=== PATIENT | male | born 1955 | race Caucasian/White ===

== ENCOUNTER 2021-04-23 21:04 | Observation (INO) | payer OTHER, MEDICAID, SELFPAY ==
[2021-04-23] VITALS (30 sets, daily range): BP systolic 117–178; BP diastolic 66–103; PULSE 84–160; RESP 7–27; TEMP 36.3; O2SAT 89–99
--- NOTE | 2021-04-23 21:07 | DI.RAD.S_ITS ---
PROCEDURE: XR CHEST 1V INDICATIONS: altered TECHNIQUE: One view of the chest was acquired. COMPARISON: [facility], CR, XR CHEST 1 VIEW, 01/26/2021, 14:25. FINDINGS: Surgical changes and devices: None. Lungs and pleura: Lungs are clear. No pleural effusions or pneumothorax. Mediastinum: Mediastinal contours appear normal. Heart size is normal. Bones and chest wall: No suspicious bony lesions. Overlying soft tissues appear unremarkable. Degenerative changes are seen in the spine. IMPRESSION: No acute cardiopulmonary abnormality. Dictated by: Zoltan Yepez M.D. on 04/23/2021 at 22:10 Approved by: Zoltan Yepez M.D. on 04/23/2021 at 22:10
--- NOTE | 2021-04-23 21:17 | ED.AMS ---
HPI - Altered Mental Status General Chief Complaint: Altered Mental Status Stated Complaint: Unresponsive Time Seen by Provider: 04/23/21 21:06 History of Present Illness HPI narrative: 65-year-old male smoker with history of diabetes on insulin presents by EMS for evaluation of altered mental status. He was found in his car covered in vomit at a local restaurant. Medics found him unresponsive and initial blood sugar was 400. He was given Narcan and then came around. He denies the use of drugs but through the paramedics he is known to be a drug user. He states he has not missed any doses of his insulin and is otherwise well and free of complaint. He denies any chest pain or shortness of breath. He denies any trauma or other injury. Related Data Home Medications Medication Instructions Recorded Confirmed atorvastatin 80 mg PO DAILY 04/24/21 04/24/21 Allergies Allergy/AdvReac Type Severity Reaction Status Date / Time No Known Drug Allergies Allergy Verified 04/23/21 21:19 Review of Systems Review of Systems Narrative: GENERAL: See HP HEENT: Denies sinus pain, ear pain, sore throat, difficulty swallowing, dizziness. RESPIRATORY: Denies dyspnea, cough, wheezing, hemoptysis, sputum. CARDIOVASCULAR: Denies chest pain, palpitations, orthopnea, edema, GASTROINTESTINAL: See HPI : Denies dysuria, frequency, incontinence, hematuria, urinary retention. MUSCULOSKELETAL: denies weakness, joint pain, or bony pain SKIN: Denies rash, skin lesions, or other NEUROLOGIC: Denies weakness, headache, numbness, change in speech, confusion, seizures, incoordination. PSYCHIATRIC: No concerning psychosocial issues. 12 point review of systems is negative except for those stated above Patient History Medical History (Updated 04/24/21 @ 04:13 by QUINTON Thomas) Amphetamine abuse History of stroke with current residual effects Insulin dependent type 1 diabetes mellitus Methamphetamine abuse Tobacco abuse Weakness of left side of body Weakness of muscle of left side of face due to and not concurrent with cerebrovascular accident (CVA) Surgical History (Updated 04/24/21 @ 04:10 by QUINTON Thomas) History of right-sided carotid endarterectomy Family History (Updated 04/24/21 @ 04:15 by QUINTON Thomas) Mother Diabetes mellitus Father Congestive heart failure Social History household members: none Smoking Status: Smoker, status unknown alcohol intake: never Exam Narrative Exam Narrative: GENERAL: [65] year old patient appears stated age. Diaphoretic and covered in vomit, awake and alert but sluggish HEAD: Atraumatic. Normocephalic. EYES: Pupils equal round and reactive. Extraocular motions intact. No scleral icterus. No injection or drainage. ENT: Nose without bleeding, purulent drainage. Throat without erythema, tonsillar hypertrophy or exudate. Airway patent. NECK: Trachea midline. Non tender CARDIOVASCULAR: Regular rate and rhythm without murmurs, gallops, or rubs. RESPIRATORY: Clear to auscultation. Breath sounds equal bilaterally. No wheezes, rales, or rhonchi. GASTROINTESTINAL: Abdomen soft, non-tender, nondistended. EXTREMITIES: No edema or joint tenderness. BACK: Nontender without deformity or crepitance. No flank tenderness. NEURO: Oriented to person and place, unaware of time. SKIN: No rash or erythema of visible areas Initial Vital Signs Initial Vital Signs: Vital Signs Temperature 97.4 F L 04/23/21 21:06 Pulse Rate 160 H 04/23/21 21:06 Respiratory Rate 11 L 04/23/21 21:06 Blood Pressure 178/103 H 04/23/21 21:06 Pulse Oximetry 93 04/23/21 21:06 Course Orders Ordered: ED Orders 04/23/21 21:06 EKG-12 Lead Stat 04/23/21 21:07 XR chest 1V Stat 04/23/21 21:23 Venous Blood Gas Stat 04/23/21 21:25 Complete Blood Count AUTO DIFF Stat D Dimer Stat Lactate (Lactic Acid) Stat Thyroid Stimulating Hormone Stat 04/23/21 21:30 COVID19 - ADMIT (HEAT AND FROST INSULATOR swab/PCR) Stat 04/23/21 21:45 Blood Culture Stat 04/23/21 22:10 Urinalysis and Microscopic Stat Urine Drug Screen, Rapid Stat 04/23/21 22:46 CT angio chest PE protocol Stat 04/23/21 22:57 CT abdomen pelvis w con Stat 04/24/21 00:37 Ketones (Beta-Hydroxybutyrate) Urgent 04/24/21 00:39 Hemoglobin A1C% w Est Avg Glu Urgent 04/24/21 00:44 Consult to Dietitian, Adult Routine Acetaminophen (Acetaminophen 325 Mg Tablet) 650 mg PO Q4HR PRN PRN Reason: Fever/Mild Pain (1-3) Dextrose (Dextrose 50 % In Water 25 Gm/50 Ml Syringe) 25 gm IV PRN PRN PRN Reason: Hypoglycemia Enoxaparin Sodium (Enoxaparin 40 Mg/0.4 Ml Syringe) 40 mg SUBCUT DAILY RODRIGUE Lactated Ringer's (Lactated Ringers) 1,000 mls @ 150 mls/hr IV CONT RODRIGUE Last Admin: 04/24/21 01:58 Dose: 150 mls/hr Documented by: ANITA Insulin Glargine (Insulin Glargine 100 Unit/Ml 3ml Pen) 10 unit SUBCUT 2100 RODRIGUE Insulin Human Lispro (Insulin Lispro 100 Unit/Ml 3ml Vial) 0 unit SUBCUT ACHS [facility]; Protocol Ketorolac Tromethamine (Ketorolac 30 Mg/Ml Vial) 30 mg IV Q6HR PRN PRN Reason: Pain, Severe (7-10) Stop: 04/29/21 00:53 Metoclopramide HCl (Metoclopramide 10 Mg/2 Ml Inj) 10 mg IV Q6HR PRN PRN Reason: Nausea And Vomiting Naloxone HCl (Naloxone 0.4 Mg/Ml Vial) 0.2 mg IV Q2MIN PRN PRN Reason: Opiate Reversal Ondansetron HCl (Ondansetron 4 Mg/2 Ml Inj) 4 mg IV Q4HR PRN PRN Reason: Nausea And Vomiting Sodium Chloride (Sodium Chloride 0.9% Flush) 10 ml IV PRN PRN PRN Reason: Flush Sodium Chloride (Sodium Chloride 0.9% Flush) 10 ml IV BID [facility] Discontinued Medications Diltiazem HCl (Diltiazem 5 Mg/Ml Sdv) 10 mg IV NOW ONE Stop: 04/23/21 21:47 Last Admin: 04/23/21 21:58 Dose: 10 mg Documented by: ABSONI Sodium Chloride (Normal Saline 0.9%) 1,000 mls @ 1,000 mls/hr IV BOLUS ONE Stop: 04/23/21 22:07 Last Infusion: 04/23/21 22:20 Dose: 0 mls/hr Documented by: Admin: 04/23/21 21:23 Dose: 1,000 mls/hr Documented by: KWOYSKI Sodium Chloride (Normal Saline 0.9%) 1,000 mls @ 1,000 mls/hr IV BOLUS ONE Stop: 04/23/21 23:22 Last Infusion: 04/23/21 23:30 Dose: 0 mls/hr Documented by: [email or web address] Admin: 04/23/21 22:20 Dose: 1,000 mls/hr Documented by: CTRJESSIE Insulin Glargine (Insulin Glargine 100 Unit/Ml 3ml Pen) 10 unit SUBCUT NOW ONE Stop: 04/24/21 00:56 Last Admin: 04/24/21 02:02 Dose: 10 unit Documented by: ANITA Cosigned by: JUAN DAVID Insulin Human Regular (Insulin Regular 100 Unit/Ml 3 Ml Vial) 10 unit SUBCUT NOW ONE Stop: 04/23/21 22:24 Last Admin: 04/23/21 22:45 Dose: 10 unit Documented by: CTRJESSIE Cosigned by: JOSE M Metoclopramide HCl (Metoclopramide 10 Mg/2 Ml Inj) 10 mg IV NOW ONE Stop: 04/23/21 22:58 Last Admin: 04/24/21 01:20 Dose: 10 mg Documented by: CTRJESSIE Ondansetron HCl (Ondansetron 4 Mg/2 Ml Inj) 4 mg IV NOW ONE Stop: 04/23/21 22:06 Last Admin: 04/23/21 22:07 Dose: 4 mg Documented by: CTREAKYLER Ondansetron HCl (Ondansetron 4 Mg/2 Ml Inj) 4 mg IV NOW ONE Stop: 04/23/21 22:57 Last Admin: 04/23/21 22:59 Dose: 4 mg Documented by: CTRJESSIE Vital Signs Vital signs: Vital Signs - 8 hr 04/23/21 21:55 04/23/21 21:58 04/23/21 22:00 Pulse Rate 135 H 137 H 132 H Respiratory Rate 11 L 27 H Blood Pressure 137/90 137/90 117/70 Pulse Oximetry 96 98 04/23/21 22:05 04/23/21 22:10 04/23/21 22:15 Pulse Rate 133 H 132 H 120 H Respiratory Rate 18 21 9 L Blood Pressure 130/88 160/85 H 156/86 H Pulse Oximetry 97 97 04/23/21 22:20 04/23/21 22:25 04/23/21 22:30 Pulse Rate 117 H 118 H 113 H Respiratory Rate 10 L 10 L 10 L Blood Pressure 144/76 H 147/77 H Pulse Oximetry 97 97 04/23/21 22:31 04/23/21 22:35 04/23/21 22:40 Pulse Rate 114 H 111 H 113 H Respiratory Rate 9 L 10 L 9 L Blood Pressure 151/67 H 117/66 127/79 Pulse Oximetry 97 97 98 04/23/21 22:45 04/23/21 22:50 04/23/21 23:20 Pulse Rate 114 H 111 H 87 Respiratory Rate 11 L 9 L 8 L Blood Pressure 138/86 134/85 162/86 H Pulse Oximetry 98 99 98 04/23/21 23:25 04/23/21 23:30 04/23/21 23:35 Pulse Rate 87 85 84 Respiratory Rate 9 L 9 L 8 L Blood Pressure 164/86 H 158/84 H 157/82 H Pulse Oximetry 99 98 98 04/23/21 23:40 04/23/21 23:45 04/23/21 23:50 Pulse Rate 84 84 85 Respiratory Rate 10 L 9 L 7 L Blood Pressure 160/86 H 159/89 H 156/88 H Pulse Oximetry 98 99 97 04/23/21 23:55 04/24/21 00:00 04/24/21 00:05 Pulse Rate 84 84 84 Respiratory Rate 7 L 7 L 7 L Blood Pressure 160/86 H 161/89 H 164/83 H Pulse Oximetry 97 97 97 04/24/21 00:10 04/24/21 00:15 04/24/21 00:20 Pulse Rate 84 84 83 Respiratory Rate 8 L 6 L 8 L Blood Pressure 169/83 H 155/83 H 158/85 H Pulse Oximetry 100 99 99 04/24/21 00:25 04/24/21 00:30 04/24/21 00:35 Pulse Rate 83 84 84 Respiratory Rate 9 L 7 L 6 L Blood Pressure 158/88 H 152/87 H 157/90 H Pulse Oximetry 100 100 100 MDM - Altered Mental Status Lab Data Result diagrams: 04/24/21 04:35 04/24/21 04:35 Labs: Lab Results 04/23/21 04/23/21 04/23/21 Range/Units 20:25 21:23 21:25 WBC 13.2 H (4.5-11.0) X10^3/uL RBC 5.25 (4.5-5.9) X10^6/uL Hgb 15.3 (13.5-17.5) g/dL Hct 47.2 (41-53) % MCV 90.0 (80-100) fL MCH 29.1 (26-34) PG MCHC 32.4 (30-36) % RDW 13.0 (11.6-14.8) % Plt Count 339 (150-400) X10^3/uL Neut % (Auto) 74.7 (50-75) % Lymph % (Auto) 17.8 L (25-40) % Andrews % (Auto) 6.3 (3-14) % Eos % (Auto) 0.3 L (2-4) % Baso % (Auto) 0.9 (0-2) % Neut # (Auto) 9900 H (4237-1040) /uL Lymph # (Auto) 2400 (2548-2612) /uL Andrews # (Auto) 800 (0-900) /uL Eos # (Auto) 0 (0-450) /uL Baso # (Auto) 100 (0-100) /uL D-Dimer (<230) ng/mL VBG pH 7.29 L (7.33-7.43) VBG pCO2 62.8 H (45-50) mmHg VBG pO2 47 H (35-45) mmHg VBG HCO3 30 H (23-28) mmol/L VBG Total CO2 32 H (24-29) mmol/L VBG O2 Saturation 76 H (70-75) % VBG Base Excess 3.0 (0-4) mmol/L Sodium 137 (137-145) mmol/L Potassium 3.6 (3.4-5.1) mmol/L Chloride 101 (98-107) mmol/L Carbon Dioxide 26 (22-32) mmol/L BUN 16 (9-20) mg/dL Creatinine 1.07 (0.66-1.25) mg/dL Estimated GFR > 60.0 (>60) mL/min BUN/Creatinine Ratio 15.0 (6-22) Glucose 443 H (80-110) mg/dL Hemoglobin A1c (4.0-6.0) % Lactate (0.7-2.1) mmol/L Calcium 9.6 (8.4-10.2) mg/dL Phosphorus (2.3-3.7) mg/dL Magnesium (1.6-2.3) mg/dL Total Bilirubin 1.2 (0.2-1.3) mg/dL AST 39 (17-59) IU/L ALT 28 (<50) IU/L Alkaline Phosphatase 157 H (38-126) U/L Total Creatine Kinase 151 (55-170) U/L CK-MB (CK-2) 2.57 H (<2.37) ng/mL CK-MB (CK-2) Rel Index 1.7 (1.5-5.0) % Troponin I < 0.012 (0.01-0.034) ng/mL Total Protein 7.9 (6.3-8.2) g/dL Albumin 4.3 (3.5-5.0) g/dL Globulin 3.6 (1.7-4.1) g/dL Albumin/Globulin Ratio 1.2 (1.0-2.8) TSH (0.47-4.68) uIU/mL Prolactin 29.6 H (3.7-17.9) ng/mL Urine Color Urine Appearance Urine pH (4.5-8.0) Ur Specific Am[place] (1.000-1.035) Urine Protein (Negative) Urine Glucose (UA) (Negative) g/dL Urine Ketones (NEGATIVE) Urine Occult Blood (Negative) Urine Nitrate (Negative) Urine Bilirubin (NEGATIVE) Urine Urobilinogen (0.2) E.U./dL Ur Leukocyte Esterase (NEGATIVE) Urine RBC (0-5/HPF) Urine WBC (0-5/HPF) Urine Bacteria (None) Hyaline Casts (None) Ur Culture Indicated? Salicylates < 1.0 (<20) mg/dL U Opiates 300ng/mL cut (Negative) Ur Oxycodone Screen (Negative) Urine Methadone Screen (Negative) Acetaminophen < 10 L (10-30) ug/mL Ur Barbiturates Screen (Negative) U Tricyclic Antidepress (Negative) Ur Phencyclidine Scrn (Negative) Ur Amphetamines Screen (Negative) U Methamphetamines Scrn (Negative) Ur MDMA Scrn (Ecstasy) (Negative) U Benzodiazepines Scrn (Negative) Urine Cocaine Screen (Negative) U Marijuana (THC) Screen (Negative) Ethyl Alcohol < 10 ( - 10) mg/dL Ketones (<0.27) mmol/L SARS-CoV-2 (PCR) (Negative) 04/23/21 04/23/21 04/23/21 Range/Units 21:25 21:25 21:25 WBC (4.5-11.0) X10^3/uL RBC (4.5-5.9) X10^6/uL Hgb (13.5-17.5) g/dL Hct (41-53) % MCV (80-100) fL MCH (26-34) PG MCHC (30-36) % RDW (11.6-14.8) % Plt Count (150-400) X10^3/uL Neut % (Auto) (50-75) % Lymph % (Auto) (25-40) % Andrews % (Auto) (3-14) % Eos % (Auto) (2-4) % Baso % (Auto) (0-2) % Neut # (Auto) (1615-2649) /uL Lymph # (Auto) (8192-0676) /uL Andrews # (Auto) (0-900) /uL Eos # (Auto) (0-450) /uL Baso # (Auto) (0-100) /uL D-Dimer 670 H (<230) ng/mL VBG pH (7.33-7.43) VBG pCO2 (45-50) mmHg VBG pO2 (35-45) mmHg VBG HCO3 (23-28) mmol/L VBG Total CO2 (24-29) mmol/L VBG O2 Saturation (70-75) % VBG Base Excess (0-4) mmol/L Sodium (137-145) mmol/L Potassium (3.4-5.1) mmol/L Chloride (98-107) mmol/L Carbon Dioxide (22-32) mmol/L BUN (9-20) mg/dL Creatinine (0.66-1.25) mg/dL Estimated GFR (>60) mL/min BUN/Creatinine Ratio (6-22) Glucose (80-110) mg/dL Hemoglobin A1c (4.0-6.0) % Lactate 2.2 H (0.7-2.1) mmol/L Calcium (8.4-10.2) mg/dL Phosphorus (2.3-3.7) mg/dL Magnesium (1.6-2.3) mg/dL Total Bilirubin (0.2-1.3) mg/dL AST (17-59) IU/L ALT (<50) IU/L Alkaline Phosphatase (38-126) U/L Total Creatine Kinase (55-170) U/L CK-MB (CK-2) (<2.37) ng/mL CK-MB (CK-2) Rel Index (1.5-5.0) % Troponin I (0.01-0.034) ng/mL Total Protein (6.3-8.2) g/dL Albumin (3.5-5.0) g/dL Globulin (1.7-4.1) g/dL Albumin/Globulin Ratio (1.0-2.8) TSH 3.81 (0.47-4.68) uIU/mL Prolactin (3.7-17.9) ng/mL Urine Color Urine Appearance Urine pH (4.5-8.0) Ur Specific Am[place] (1.000-1.035) Urine Protein (Negative) Urine Glucose (UA) (Negative) g/dL Urine Ketones (NEGATIVE) Urine Occult Blood (Negative) Urine Nitrate (Negative) Urine Bilirubin (NEGATIVE) Urine Urobilinogen (0.2) E.U./dL Ur Leukocyte Esterase (NEGATIVE) Urine RBC (0-5/HPF) Urine WBC (0-5/HPF) Urine Bacteria (None) Hyaline Casts (None) Ur Culture Indicated? Salicylates (<20) mg/dL U Opiates 300ng/mL cut (Negative) Ur Oxycodone Screen (Negative) Urine Methadone Screen (Negative) Acetaminophen (10-30) ug/mL Ur Barbiturates Screen (Negative) U Tricyclic Antidepress (Negative) Ur Phencyclidine Scrn (Negative) Ur Amphetamines Screen (Negative) U Methamphetamines Scrn (Negative) Ur MDMA Scrn (Ecstasy) (Negative) U Benzodiazepines Scrn (Negative) Urine Cocaine Screen (Negative) U Marijuana (THC) Screen (Negative) Ethyl Alcohol ( - 10) mg/dL Ketones (<0.27) mmol/L SARS-CoV-2 (PCR) (Negative) 04/23/21 04/23/21 04/23/21 Range/Units 21:25 21:25 21:25 WBC (4.5-11.0) X10^3/uL RBC (4.5-5.9) X10^6/uL Hgb (13.5-17.5) g/dL Hct (41-53) % MCV (80-100) fL MCH (26-34) PG MCHC (30-36) % RDW (11.6-14.8) % Plt Count (150-400) X10^3/uL Neut % (Auto) (50-75) % Lymph % (Auto) (25-40) % Andrews % (Auto) (3-14) % Eos % (Auto) (2-4) % Baso % (Auto) (0-2) % Neut # (Auto) (8791-0371) /uL Lymph # (Auto) (7912-2581) /uL Andrews # (Auto) (0-900) /uL Eos # (Auto) (0-450) /uL Baso # (Auto) (0-100) /uL D-Dimer (<230) ng/mL VBG pH (7.33-7.43) VBG pCO2 (45-50) mmHg VBG pO2 (35-45) mmHg VBG HCO3 (23-28) mmol/L VBG Total CO2 (24-29) mmol/L VBG O2 Saturation (70-75) % VBG Base Excess (0-4) mmol/L Sodium (137-145) mmol/L Potassium (3.4-5.1) mmol/L Chloride (98-107) mmol/L Carbon Dioxide (22-32) mmol/L BUN (9-20) mg/dL Creatinine (0.66-1.25) mg/dL Estimated GFR (>60) mL/min BUN/Creatinine Ratio (6-22) Glucose (80-110) mg/dL Hemoglobin A1c 8.1 H (4.0-6.0) % Lactate (0.7-2.1) mmol/L Calcium (8.4-10.2) mg/dL Phosphorus 3.9 H (2.3-3.7) mg/dL Magnesium (1.6-2.3) mg/dL Total Bilirubin (0.2-1.3) mg/dL AST (17-59) IU/L ALT (<50) IU/L Alkaline Phosphatase (38-126) U/L Total Creatine Kinase (55-170) U/L CK-MB (CK-2) (<2.37) ng/mL CK-MB (CK-2) Rel Index (1.5-5.0) % Troponin I (0.01-0.034) ng/mL Total Protein (6.3-8.2) g/dL Albumin (3.5-5.0) g/dL Globulin (1.7-4.1) g/dL Albumin/Globulin Ratio (1.0-2.8) TSH (0.47-4.68) uIU/mL Prolactin (3.7-17.9) ng/mL Urine Color Urine Appearance Urine pH (4.5-8.0) Ur Specific Amite (1.000-1.035) Urine Protein (Negative) Urine Glucose (UA) (Negative) g/dL Urine Ketones (NEGATIVE) Urine Occult Blood (Negative) Urine Nitrate (Negative) Urine Bilirubin (NEGATIVE) Urine Urobilinogen (0.2) E.U./dL Ur Leukocyte Esterase (NEGATIVE) Urine RBC (0-5/HPF) Urine WBC (0-5/HPF) Urine Bacteria (None) Hyaline Casts (None) Ur Culture Indicated? Salicylates (<20) mg/dL U Opiates 300ng/mL cut (Negative) Ur Oxycodone Screen (Negative) Urine Methadone Screen (Negative) Acetaminophen (10-30) ug/mL Ur Barbiturates Screen (Negative) U Tricyclic Antidepress (Negative) Ur Phencyclidine Scrn (Negative) Ur Amphetamines Screen (Negative) U Methamphetamines Scrn (Negative) Ur MDMA Scrn (Ecstasy) (Negative) U Benzodiazepines Scrn (Negative) Urine Cocaine Screen (Negative) U Marijuana (THC) Screen (Negative) Ethyl Alcohol ( - 10) mg/dL Ketones 1.48 H (<0.27) mmol/L SARS-CoV-2 (PCR) (Negative) 04/23/21 04/23/21 04/23/21 Range/Units 21:30 22:10 22:10 WBC (4.5-11.0) X10^3/uL RBC (4.5-5.9) X10^6/uL Hgb (13.5-17.5) g/dL Hct (41-53) % MCV (80-100) fL MCH (26-34) PG MCHC (30-36) % RDW (11.6-14.8) % Plt Count (150-400) X10^3/uL Neut % (Auto) (50-75) % Lymph % (Auto) (25-40) % Andrews % (Auto) (3-14) % Eos % (Auto) (2-4) % Baso % (Auto) (0-2) % Neut # (Auto) (0984-5637) /uL Lymph # (Auto) (9237-5390) /uL Andrews # (Auto) (0-900) /uL Eos # (Auto) (0-450) /uL Baso # (Auto) (0-100) /uL D-Dimer (<230) ng/mL VBG pH (7.33-7.43) VBG pCO2 (45-50) mmHg VBG pO2 (35-45) mmHg VBG HCO3 (23-28) mmol/L VBG Total CO2 (24-29) mmol/L VBG O2 Saturation (70-75) % VBG Base Excess (0-4) mmol/L Sodium (137-145) mmol/L Potassium (3.4-5.1) mmol/L Chloride (98-107) mmol/L Carbon Dioxide (22-32) mmol/L BUN (9-20) mg/dL Creatinine (0.66-1.25) mg/dL Estimated GFR (>60) mL/min BUN/Creatinine Ratio (6-22) Glucose (80-110) mg/dL Hemoglobin A1c (4.0-6.0) % Lactate (0.7-2.1) mmol/L Calcium (8.4-10.2) mg/dL Phosphorus (2.3-3.7) mg/dL Magnesium (1.6-2.3) mg/dL Total Bilirubin (0.2-1.3) mg/dL AST (17-59) IU/L ALT (<50) IU/L Alkaline Phosphatase (38-126) U/L Total Creatine Kinase (55-170) U/L CK-MB (CK-2) (<2.37) ng/mL CK-MB (CK-2) Rel Index (1.5-5.0) % Troponin I (0.01-0.034) ng/mL Total Protein (6.3-8.2) g/dL Albumin (3.5-5.0) g/dL Globulin (1.7-4.1) g/dL Albumin/Globulin Ratio (1.0-2.8) TSH (0.47-4.68) uIU/mL Prolactin (3.7-17.9) ng/mL Urine Color Yellow Urine Appearance Clear Urine pH 5.5 (4.5-8.0) Ur Specific Amite 1.015 (1.000-1.035) Urine Protein Negative (Negative) Urine Glucose (UA) 3+ H (Negative) g/dL Urine Ketones 1+ H (NEGATIVE) Urine Occult Blood Negative (Negative) Urine Nitrate Negative (Negative) Urine Bilirubin Negative (NEGATIVE) Urine Urobilinogen 0.2 (0.2) E.U./dL Ur Leukocyte Esterase Negative (NEGATIVE) Urine RBC None seen (0-5/HPF) Urine WBC 0-1/hpf (0-5/HPF) Urine Bacteria None seen (None) Hyaline Casts 0-1/lpf (None) Ur Culture Indicated? Cult not indicated Salicylates (<20) mg/dL U Opiates 300ng/mL cut Negative (Negative) Ur Oxycodone Screen Negative (Negative) Urine Methadone Screen Negative (Negative) Acetaminophen (10-30) ug/mL Ur Barbiturates Screen Negative (Negative) U Tricyclic Antidepress Negative (Negative) Ur Phencyclidine Scrn Negative (Negative) Ur Amphetamines Screen Positive H (Negative) U Methamphetamines Scrn Positive H (Negative) Ur MDMA Scrn (Ecstasy) Negative (Negative) U Benzodiazepines Scrn Negative (Negative) Urine Cocaine Screen Negative (Negative) U Marijuana (THC) Screen Negative (Negative) Ethyl Alcohol ( - 10) mg/dL Ketones (<0.27) mmol/L SARS-CoV-2 (PCR) Negative (Negative) 04/23/21 04/23/21 Range/Units 23:25 23:25 WBC (4.5-11.0) X10^3/uL RBC (4.5-5.9) X10^6/uL Hgb (13.5-17.5) g/dL Hct (41-53) % MCV (80-100) fL MCH (26-34) PG MCHC (30-36) % RDW (11.6-14.8) % Plt Count (150-400) X10^3/uL Neut % (Auto) (50-75) % Lymph % (Auto) (25-40) % Andrews % (Auto) (3-14) % Eos % (Auto) (2-4) % Baso % (Auto) (0-2) % Neut # (Auto) (7518-2966) /uL Lymph # (Auto) (5724-9776) /uL Andrews # (Auto) (0-900) /uL Eos # (Auto) (0-450) /uL Baso # (Auto) (0-100) /uL D-Dimer (<230) ng/mL VBG pH (7.33-7.43) VBG pCO2 (45-50) mmHg VBG pO2 (35-45) mmHg VBG HCO3 (23-28) mmol/L VBG Total CO2 (24-29) mmol/L VBG O2 Saturation (70-75) % VBG Base Excess (0-4) mmol/L Sodium (137-145) mmol/L Potassium (3.4-5.1) mmol/L Chloride (98-107) mmol/L Carbon Dioxide (22-32) mmol/L BUN (9-20) mg/dL Creatinine (0.66-1.25) mg/dL Estimated GFR (>60) mL/min BUN/Creatinine Ratio (6-22) Glucose (80-110) mg/dL Hemoglobin A1c (4.0-6.0) % Lactate 1.5 (0.7-2.1) mmol/L Calcium (8.4-10.2) mg/dL Phosphorus (2.3-3.7) mg/dL Magnesium 1.7 (1.6-2.3) mg/dL Total Bilirubin (0.2-1.3) mg/dL AST (17-59) IU/L ALT (<50) IU/L Alkaline Phosphatase (38-126) U/L Total Creatine Kinase (55-170) U/L CK-MB (CK-2) (<2.37) ng/mL CK-MB (CK-2) Rel Index (1.5-5.0) % Troponin I (0.01-0.034) ng/mL Total Protein (6.3-8.2) g/dL Albumin (3.5-5.0) g/dL Globulin (1.7-4.1) g/dL Albumin/Globulin Ratio (1.0-2.8) TSH (0.47-4.68) uIU/mL Prolactin (3.7-17.9) ng/mL Urine Color Urine Appearance Urine pH (4.5-8.0) Ur Specific [place] (1.000-1.035) Urine Protein (Negative) Urine Glucose (UA) (Negative) g/dL Urine Ketones (NEGATIVE) Urine Occult Blood (Negative) Urine Nitrate (Negative) Urine Bilirubin (NEGATIVE) Urine Urobilinogen (0.2) E.U./dL Ur Leukocyte Esterase (NEGATIVE) Urine RBC (0-5/HPF) Urine WBC (0-5/HPF) Urine Bacteria (None) Hyaline Casts (None) Ur Culture Indicated? Salicylates (<20) mg/dL U Opiates 300ng/mL cut (Negative) Ur Oxycodone Screen (Negative) Urine Methadone Screen (Negative) Acetaminophen (10-30) ug/mL Ur Barbiturates Screen (Negative) U Tricyclic Antidepress (Negative) Ur Phencyclidine Scrn (Negative) Ur Amphetamines Screen (Negative) U Methamphetamines Scrn (Negative) Ur MDMA Scrn (Ecstasy) (Negative) U Benzodiazepines Scrn (Negative) Urine Cocaine Screen (Negative) U Marijuana (THC) Screen (Negative) Ethyl Alcohol ( - 10) mg/dL Ketones (<0.27) mmol/L SARS-CoV-2 (PCR) (Negative) Point of Care Testing Glucose POC [address] scan - chest: Radiologist's Impression: 46 Doug Ludwig, DO Find Patient Imaging - Titi Gibson 65 M 1955 ACTIVITY DATE EXAM STATUS AUTHOR 04/23/21 22:57 Signed Cuong Raymond 04/23/21 22:46 Signed Cuong Raymond 04/23/21 21:[id number] [id number] Scan ReportSigned Patient: Zhane Gibson#: [id number]: 1955cct:[id number]/Sex: 65 / MDate of Service: 04/23/21Loc: EDAccession Number: [id number] Procedure: CT angio chest PE protocol Ordering Provider: Doug Ludwig D.O. PROCEDURE: CT ANGIO CHEST PE PROTOCOL INDICATIONS: altered, tachycardia, hypoxia, critical D Dimer TECHNIQUE: After the administration of intravenous contrast, 2 mm thick sections acquired from the pulmonary apices to the posterior costophrenic angles. 3-dimensional maximum intensity projection (MIP) coronal and sagittal reformats were then acquired through the thorax. For radiation dose reduction, the following was used: automated exposure control, adjustment of mA and/or kV according to patient size. COMPARISON: [facility], CT, CT ABDOMEN PELVIS W CON, 04/23/2021, 22:55. [facility], CR, XR CHEST 1V, 04/23/2021, 21:16. FINDINGS: Image quality: Excellent. Pulmonary arteries: Pulmonary arteries are normal in size, and demonstrate no intraluminal filling defects to suggest central pulmonary embolism. Lungs and pleura: Bibasilar dependent change, right greater than left. No pleural effusions or pneumothorax. Central and peripheral airways are patent. Mediastinum: Heart size is normal, without pericardial effusion. No mediastinal or hilar adenopathy. Thoracic aorta is normal in caliber and enhancement. Esophagus is normal in caliber, without hiatal hernia. Bones and chest wall: No suspicious bony lesions. Ribs and thoracic spine appear intact throughout. Thyroid gland is unremarkable as visualized. No axillary or supraclavicular adenopathy. Abdomen: Visualized upper abdominal solid organs appear normal in the early arterial phase of enhancement. IMPRESSION: 1. No evidence acute pulmonary emboli. 2. Bibasilar dependent change, right greater than left. Dictated by: Cuong Raymond M.D. on 04/23/2021 at 23:44 Approved by: Cuong Raymond M.D. on 04/23/2021 at 23:47 CT scan - abdomen/pelvis: Radiologist's Impression: Titi Gibson 65 M [address] [id number] Scan ReportSigned Patient: Zhane Gibson#: [id number]: [id number]:[id number]/Sex: 65 / MDate of Service: 04/23/21Loc: EDAccession Number: [id number] Procedure: CT abdomen pelvis w con Ordering Provider: Doug Ludwig D.O. PROCEDURE: CT ABDOMEN PELVIS W CON INDICATIONS: abdominal pain, N/V TECHNIQUE: After the administration of intravenous contrast, axial sections acquired from the lung bases to the pubic symphysis. Coronal and sagittal reformats were performed. For radiation dose reduction, the following was used: automated exposure control, adjustment of mA and/or kV according to patient size. COMPARISON: None. FINDINGS: Image quality: Excellent. Lung bases: Bibasilar dependent change, right greater than left. Heart: No significant findings. ABDOMEN: Liver: Unremarkable. Gallbladder: Moderately distended without gallbladder wall thickening or fluid around the gallbladder. Biliary ducts: Unremarkable. Pancreas: Unremarkable. Spleen: Unremarkable. Adrenal Glands: Unremarkable. Kidneys and Ureters: Unremarkable. Stomach and Bowel: Stomach, small bowel loops, and colon are unremarkable. Peritoneum: No abnormal intraperitoneal fluid. No free air. Ventral Wall: No hernias. Abdominal Nodes: No retroperitoneal or mesenteric adenopathy by size criteria. Vessels: Aorta and inferior vena cava are normal in size. PELVIS: Pelvic Organs: Significant prostate enlargement. Bladder: A Ac catheter is present in the bladder. There is air associated with a Ac catheter. There is mild diffuse bladder wall thickening. Pelvic Nodes: No enlarged lymph nodes. Miscellaneous: No hernias are seen. Bones: Lumbar degenerative change. IMPRESSION: 1. Moderately distended gallbladder out without gallbladder wall thickening. 2. Enlarged prostate. 3. Mild bladder wall thickening. 4. Bibasilar dependent change, right greater than left. Dictated by: Cuong Raymond M.D. on 04/23/2021 at 23:47 Approved by: Cuong Raymond M.D. on 04/23/2021 at 23:51 Discharge Plan Departure Patient Disposition: Admitted As Inpatient Clinical Impression: Acute alteration in mental status, Acute hyperglycemia, Metabolic acidosis, Vomiting Admit Date/Time: 04/24/21 00:39 Admit Provider: Hiral Altamirano
[2021-04-23] MEDS: SODIUM CHLORIDE 0.9% 1,000 ML 1000 ML IV ×2 (21:23→22:20)
[2021-04-23 21:40] LABS: Add Manual Diff / Slide Review NO; Basophils Absolute Auto 100 /uL (0-100); Basophils Percent Auto 0.9 % (0-2); Eosinophils Absolute Auto 0 /uL (0-450); Eosinophils Percent Auto 0.3 % (2-4); Hematocrit 47.2 % (41-53); Hemoglobin 15.3 g/dL (13.5-17.5); Lymphocytes Absolute Auto 2400 /uL (1100-4500); Lymphocytes Percent Auto 17.8 % (25-40); Mean Corpuscular HGB Conc 32.4 % (30-36); Mean Corpuscular Hemoglobin 29.1 PG (26-34); Monocytes Absolute Auto 800 /uL (0-900); Monocytes Percent Auto 6.3 % (3-14); Neutrophils Absolute Auto 9900 /uL (1500-7000); Neutrophils Percent Auto 74.7 % (50-75); Platelet Count 339 X10^3/uL (150-400); Red Blood Cell Count 5.25 X10^6/uL (4.5-5.9); White Blood Cell Count 13.2 X10^3/uL (4.5-11.0)
[2021-04-23 21:55] LABS: Lactate (Lactic Acid) 2.2 mmol/L (0.7-2.1)
[2021-04-23] MEDS: dilTIAZem 5 MG/ML SDV 10 MG IV (21:58)
[2021-04-23 22:00] LABS: Acetaminophen < 10 ug/mL (10-30); Alanine Aminotransferase 28 IU/L (<50); Albumin 4.3 g/dL (3.5-5.0); Albumin Globulin Ratio 1.2 (1.0-2.8); Alkaline Phosphatase 157 U/L (38-126); Aspartate Aminotransferase 39 IU/L (17-59); Bilirubin Total 1.2 mg/dL (0.2-1.3); Blood Urea Nitrogen 16 mg/dL (9-20); Calcium 9.6 mg/dL (8.4-10.2); Carbon Dioxide 26 mmol/L (22-32); Chloride 101 mmol/L (98-107); Creatine Kinase 151 U/L (55-170); Estimated Glomerular Filt Rate > 60.0 mL/min (>60); Ethanol (ETOH) < 10 mg/dL; Globulin 3.6 g/dL (1.7-4.1); Glucose 443 mg/dL (80-110); HEMOLYSIS 21 (0-50); Potassium 3.6 mmol/L (3.4-5.1); Salicylate < 1.0 mg/dL (<20); Sodium 137 mmol/L (137-145); Total Protein 7.9 g/dL (6.3-8.2)
[2021-04-23] MEDS: ONDANSETRON 4 MG/2 ML INJ IV ×2 (22:07→22:59)
[2021-04-23 22:11] LABS: Troponin I < 0.012 ng/mL (0.01-0.034)
[2021-04-23 22:15] LABS: CKMB % Relative Index 1.7 % (1.5-5.0); Creatine Kinase MB 2.57 ng/mL (<2.37)
[2021-04-23 22:16] LABS: Prolactin 29.6 ng/mL (3.7-17.9)
[2021-04-23 22:22] LABS: Bacteria Urine None Seen; RBC Urine None Seen (0-5/HPF)
[2021-04-23 22:24] LABS: D Dimer 670 ng/mL (<230)
[2021-04-23 22:27] LABS: Appearance Urine UA CLEAR; Bilirubin Urine UA NEGATIVE (NEGATIVE); Color Urine UA YELLOW; Glucose Urine UA 3+ g/dL (Negative); Ketones Urine UA 1+ (NEGATIVE); Leukocyte Esterase Urine UA NEGATIVE (NEGATIVE); Nitrite Urine UA NEGATIVE (Negative); Occult Blood Urine UA NEGATIVE (Negative); Protein Urine UA NEGATIVE (Negative); Specific Gravity Urine UA 1.015 (1.000-1.035); Urobilinogen Urine UA 0.2 E.U./dL (0.2); pH Urine UA 5.5 (4.5-8.0)
[2021-04-23 22:33] LABS: UR Morphine/Opiate cutoff 300 Negative (Negative); Ur Creatinine 50 (Normal); Ur Specific Gravity 1.015 (Normal); Urine Amphetamines Positive (Negative); Urine Cocaine Negative (Negative); Urine Methamphetamines Positive (Negative); Urine Tetrahydrocannabinol Negative (Negative); Urine pH 5.5 (Normal)
[2021-04-23 22:34] LABS: Urine Barbiturates Negative (Negative); Urine Benzodiazepines Negative (Negative); Urine MDMA Negative (Negative); Urine Methadone Negative (Negative); Urine Oxycodone Negative (Negative); Urine Phencyclidine Negative (Negative); Urine Tricyclic Antidepressant Negative (Negative)
[2021-04-23 22:35] LABS: HCO3 VBG 30 mmol/L (23-28); Oxygen Saturation VBG 76 % (70-75); PCO2 VBG 62.8 mmHg (45-50); PO2 VBG 47 mmHg (35-45); Total CO2 VBG 32 mmol/L (24-29)
[2021-04-23 22:36] LABS: pH VBG 7.29 (7.33-7.43)
[2021-04-23] MEDS: INSULIN REGULAR 100 UNIT/ML 3 ML VIAL 10 UNIT SUBCUT (22:45)
--- NOTE | 2021-04-23 22:46 | DI.CT.S_ITS ---
PROCEDURE: CT ANGIO CHEST PE PROTOCOL INDICATIONS: altered, tachycardia, hypoxia, critical D Dimer TECHNIQUE: After the administration of intravenous contrast, 2 mm thick sections acquired from the pulmonary apices to the posterior costophrenic angles. 3-dimensional maximum intensity projection (MIP) coronal and sagittal reformats were then acquired through the thorax. For radiation dose reduction, the following was used: automated exposure control, adjustment of mA and/or kV according to patient size. COMPARISON: [facility], CT, CT ABDOMEN PELVIS W CON, 04/23/2021, 22:55. [facility], CR, XR CHEST 1V, 04/23/2021, 21:16. FINDINGS: Image quality: Excellent. Pulmonary arteries: Pulmonary arteries are normal in size, and demonstrate no intraluminal filling defects to suggest central pulmonary embolism. Lungs and pleura: Bibasilar dependent change, right greater than left. No pleural effusions or pneumothorax. Central and peripheral airways are patent. Mediastinum: Heart size is normal, without pericardial effusion. No mediastinal or hilar adenopathy. Thoracic aorta is normal in caliber and enhancement. Esophagus is normal in caliber, without hiatal hernia. Bones and chest wall: No suspicious bony lesions. Ribs and thoracic spine appear intact throughout. Thyroid gland is unremarkable as visualized. No axillary or supraclavicular adenopathy. Abdomen: Visualized upper abdominal solid organs appear normal in the early arterial phase of enhancement. IMPRESSION: 1. No evidence acute pulmonary emboli. 2. Bibasilar dependent change, right greater than left. Dictated by: Cuong Raymond M.D. on 04/23/2021 at 23:44 Approved by: Cuong Raymond M.D. on 04/23/2021 at 23:47
[2021-04-23 22:57] LABS: COVID19 - ADMIT (NP swab/PCR) Negative (Negative)
--- NOTE | 2021-04-23 22:57 | DI.CT.S_ITS ---
PROCEDURE: CT ABDOMEN PELVIS W CON INDICATIONS: abdominal pain, N/V TECHNIQUE: After the administration of intravenous contrast, axial sections acquired from the lung bases to the pubic symphysis. Coronal and sagittal reformats were performed. For radiation dose reduction, the following was used: automated exposure control, adjustment of mA and/or kV according to patient size. COMPARISON: None. FINDINGS: Image quality: Excellent. Lung bases: Bibasilar dependent change, right greater than left. Heart: No significant findings. ABDOMEN: Liver: Unremarkable. Gallbladder: Moderately distended without gallbladder wall thickening or fluid around the gallbladder. Biliary ducts: Unremarkable. Pancreas: Unremarkable. Spleen: Unremarkable. Adrenal Glands: Unremarkable. Kidneys and Ureters: Unremarkable. Stomach and Bowel: Stomach, small bowel loops, and colon are unremarkable. Peritoneum: No abnormal intraperitoneal fluid. No free air. Ventral Wall: No hernias. Abdominal Nodes: No retroperitoneal or mesenteric adenopathy by size criteria. Vessels: Aorta and inferior vena cava are normal in size. PELVIS: Pelvic Organs: Significant prostate enlargement. Bladder: A Ac catheter is present in the bladder. There is air associated with a Ac catheter. There is mild diffuse bladder wall thickening. Pelvic Nodes: No enlarged lymph nodes. Miscellaneous: No hernias are seen. Bones: Lumbar degenerative change. IMPRESSION: 1. Moderately distended gallbladder out without gallbladder wall thickening. 2. Enlarged prostate. 3. Mild bladder wall thickening. 4. Bibasilar dependent change, right greater than left. Dictated by: Cuong Raymond M.D. on 04/23/2021 at 23:47 Approved by: Cuong Raymond M.D. on 04/23/2021 at 23:51
[2021-04-23 23:01] LABS: Culture Indicated Urine Cult Not Indicated; Hyaline Casts Urine 0-1/LPF; WBC Urine 0-1/HPF (0-5/HPF)
[2021-04-23 23:14] LABS: Thyroid Stimulating Hormone 3.81 uIU/mL (0.47-4.68)
[2021-04-23 23:33] LABS: Reflexed Lactate in 2 Hours Y
[2021-04-23 23:43] LABS: Lactate 2HR (Lactic Acid Rflx) 1.5 mmol/L (0.7-2.1)
[2021-04-24] VITALS (23 sets, daily range): BP systolic 126–169; BP diastolic 68–93; PULSE 83–94; RESP 6–17; TEMP 35.9–36.8; O2SAT 96–100; BMI 25.4
--- NOTE | 2021-04-24 00:56 | PM.HP.1 ---
History of Present Illness History of Present Illness Date Patient Seen: 04/24/21 Time Patient Seen: 00:56 Chief complaint: Unresponsive Narrative: Patient is a 65-year-old male Titi Gibson smoker with history of diabetes on insulin presents by EMS for evaluation of altered mental status. He was found in his car covered in vomit in a local restaurant parking lot. Medics found him unresponsive and initial blood sugar was 400. He was given Narcan and then came around. He denies the use of drugs but through the paramedics state he is known drug user. He states he has not missed any doses of his insulin and is otherwise well and free of complaint. Patient was confusioned in the ED, on arrival to the floor he was orientated x3. He denies any chest pain or shortness of breath. He denies any trauma or other injury. Patient continued to be nauseated and vomit in the ED, despite repeated doses of antiemetics. Patient is a type 1 diabetic, and notes that he was seen at [facility] for a stroke and what sounds like a carotid endarterectomy just a few months ago, and that the patient's left facial droop, contracted left arm/ hand and left leg weakness are secondary to that stroke. Based on the degree of contracture of the left arm I suspect that the stroke was longer than a few months ago. He denies a diagnosis hypertension, COPD, or heart disease, and states that he is not on any anticoagulants. The patient states that he is able to ambulate with a cane normally. Patient denies headache, changes in vision, dizziness, vertigo, new onset weakness, numbness, tingling, abdominal pain, urinary issues, recent illness, exposure to ill persons, injury, or trauma. Patient states that he heavily used meth a few years ago but may have used as recently as 3 days ago, he denies ever drinking alcohol, and denied any other recreational substances. Patient is currently homeless, lives out of his car, and is unemployed. Patient is resting comfortably in bed, he has had only 1 episode of vomiting since arriving on the floor and that was with movement from transitioning from the rbaxter to the . Vitals, his blood pressure was slightly elevated on admit 159/89, HR 84, RR 9, O2 sat 99% on room air. Although patient was found unresponsive, he is arousable but continues to be confused, currently his airway is protected is having no difficulty with breathing. Patient has a small elevation WBC 13.2 with neutrophils 9900, lactate, troponin both her negative, patient's potassium is normal, serum HC03 is normal. D-dimer of 670-chest CTA was negative for PE. Patient has a sofa score of 2, does not appear to be septic, he does have respiratory acidosis with metabolic alkalosis, without DKA or DEEPTI, normal trouble tracer and no anion gap. Patient's procalcitonin is 29.6. Patient's VBG: PH 7.29, pCO2 62.8, PO2 47, HC03 30, total CO2 32. Patient's urine was positive for ketones and glucose but negative for nitrates no culture ordered. Drug screen was negative for acetaminophen, positive for amphetamines and methamphetamines, negative for alcohol. Patient's TSH was negative. CT of abdomen and pelvis demonstrated distended gallbladder without wall thickening or fluid, enlarged prostate mild bladder wall thickening. And and in the lungs bibasilar dependent changes right greater than left. Chest x-ray was negative for acute cardiopulmonary processes. Patient admitted for loss of consciousness followed by altered mental status, respiratory acidosis with metabolic alkalosis, hyperglycemia, amphetamine abuse, and elevated blood pressure. Patient History Medical History (Updated 04/24/21 @ 04:13 by QUINTON Thomas) Amphetamine abuse History of stroke with current residual effects Insulin dependent type 1 diabetes mellitus Methamphetamine abuse Tobacco abuse Weakness of left side of body Weakness of muscle of left side of face due to and not concurrent with cerebrovascular accident (CVA) Surgical History (Updated 04/24/21 @ 04:10 by QUINTON Thomas) History of right-sided carotid endarterectomy Family & Social History Family History (Updated 04/24/21 @ 04:15 by QUINTON Thomas) Mother Diabetes mellitus Father Congestive heart failure Safety & Behavioral: Feels Safe in Current patient is currently homeless living out of his vehicle. Environment Meds Home Medications and Allergies Home Medications Medication Instructions Recorded Confirmed Type atorvastatin 80 mg PO DAILY 04/24/21 04/24/21 History Allergies Allergy/AdvReac Type Severity Reaction Status Date / Time No Known Drug Allergies Allergy Verified 04/23/21 21:19 Review of Systems Review of Systems Narrative: All 12 point systems reviewed with the patient and are negative except otherwise documented. Exam Vital Signs (past 8 hours): - 04/23/21 21:06 04/23/21 21:28 04/23/21 21:30 Temperature 97.4 F L Pulse Rate 160 H 136 H 155 H Respiratory Rate 11 L 23 13 Blood Pressure 178/103 H Pulse Oximetry 93 97 98 04/23/21 21:33 04/23/21 21:35 04/23/21 21:40 Temperature Pulse Rate 151 H 151 H 149 H Respiratory Rate 13 17 Blood Pressure 143/92 H 156/91 H 150/95 H Pulse Oximetry 97 97 93 04/23/21 21:45 04/23/21 21:50 04/23/21 21:55 Temperature Pulse Rate 144 H 142 H 135 H Respiratory Rate 11 L 20 11 L Blood Pressure 148/89 H 143/92 H 137/90 Pulse Oximetry 94 89 L 96 04/23/21 21:58 04/23/21 22:00 04/23/21 22:05 Temperature Pulse Rate 137 H 132 H 133 H Respiratory Rate 27 H 18 Blood Pressure 137/90 117/70 130/88 Pulse Oximetry 98 97 04/23/21 22:10 04/23/21 22:15 04/23/21 22:20 Temperature Pulse Rate 132 H 120 H 117 H Respiratory Rate 21 9 L 10 L Blood Pressure 160/85 H 156/86 H 144/76 H Pulse Oximetry 97 04/23/21 22:25 04/23/21 22:30 04/23/21 22:31 Temperature Pulse Rate 118 H 113 H 114 H Respiratory Rate 10 L 10 L 9 L Blood Pressure 147/77 H 151/67 H Pulse Oximetry 97 97 97 04/23/21 22:35 04/23/21 22:40 04/23/21 22:45 Temperature Pulse Rate 111 H 113 H 114 H Respiratory Rate 10 L 9 L 11 L Blood Pressure 117/66 127/79 138/86 Pulse Oximetry 97 98 98 04/23/21 22:50 04/23/21 23:20 04/23/21 23:25 Temperature Pulse Rate 111 H 87 87 Respiratory Rate 9 L 8 L 9 L Blood Pressure 134/85 162/86 H 164/86 H Pulse Oximetry 99 98 99 04/23/21 23:30 04/23/21 23:35 04/23/21 23:40 Temperature Pulse Rate 85 84 84 Respiratory Rate 9 L 8 L 10 L Blood Pressure 158/84 H 157/82 H 160/86 H Pulse Oximetry 98 98 98 04/23/21 23:45 Temperature Pulse Rate 84 Respiratory Rate 9 L Blood Pressure 159/89 H Pulse Oximetry 99 Oxygen Delivery Method Room Air Narrative Exam Narrative: General: Patient is thin looking, poorly nourished male to show old who appears older than stated age, in no distress at this time. HEENT: Normocephalic, atraumatic, extraocular muscles intact, oral pharynx is clear and mucous membranes are dry. noted slight left facial droop. Neck is supple and symmetric, trachea is midline, no adenopathy, no thyroid enlargement, nontender, no masses palpated. Negative for JVD Chest: Normal AP diameter and contour without kyphoscoliosis, no nasal flaring, retractions, or tachypneic labored Lungs: Auscultation of all lung vaz are decreased but equal in bases without adventitious sounds, wheezes, rhonchi, or rales. Cardio: S1 & S2 with regular rate and rhythm without murmur, rubs, or gallops, no carotid bruit, no cardiac pulsations present. Abdomen: Soft nontender, negative for organomegaly, or masses. Bowel sounds are present in all 4 quadrants without guarding or rebound, no CVA tenderness. Musculoskeletal: Muscle strength and tone are equal within normal limits on the right extremities, no deformity, crepitus, effusions, cyanosis, clubbing or edema present in all extremities. Full range of motion intact radial and pedal pulses are normal. Left arm is contracted in abducted position and left hand is clenched in a fist to patient's chest. patient has mild weakness in his left leg. Skin: Warm dry, cracked and intact without rashes, ulcerations or petechiae. Neuro: sensation to touch intact, no gross deficits noted of cranial nerves. Psych: Patient is alert and orientated x3, flat affect, appearing to lack insight or judgment regarding health condition and use of recreational substances, fairly good historian. Objective Labs Result Diagrams: 04/23/21 21:25 04/23/21 20:25 Labs: Laboratory Results - last 24 hr 04/23/21 04/23/21 04/23/21 20:25 21:23 21:25 WBC 13.2 H RBC 5.25 Hgb 15.3 Hct 47.2 MCV 90.0 MCH 29.1 MCHC 32.4 RDW 13.0 Plt Count 339 Neut % (Auto) 74.7 Lymph % (Auto) 17.8 L Fisher % (Auto) 6.3 Eos % (Auto) 0.3 L Baso % (Auto) 0.9 Neut # (Auto) 9900 H Lymph # (Auto) 2400 Fisher # (Auto) 800 Eos # (Auto) 0 Baso # (Auto) 100 D-Dimer VBG pH 7.29 L VBG pCO2 62.8 H VBG pO2 47 H VBG HCO3 30 H VBG Total CO2 32 H VBG O2 Saturation 76 H VBG Base Excess 3.0 Sodium 137 Potassium 3.6 Chloride 101 Carbon Dioxide 26 BUN 16 Creatinine 1.07 Estimated GFR > 60.0 BUN/Creatinine Ratio 15.0 Glucose 443 H Lactate Calcium 9.6 Total Bilirubin 1.2 AST 39 ALT 28 Alkaline Phosphatase 157 H Total Creatine Kinase 151 CK-MB (CK-2) 2.57 H CK-MB (CK-2) Rel Index 1.7 Troponin I < 0.012 Total Protein 7.9 Albumin 4.3 Globulin 3.6 Albumin/Globulin Ratio 1.2 TSH Prolactin 29.6 H Urine Color Urine Appearance Urine pH Ur Specific [place] Urine Protein Urine Glucose (UA) Urine Ketones Urine Occult Blood Urine Nitrate Urine Bilirubin Urine Urobilinogen Ur Leukocyte Esterase Urine RBC Urine WBC Urine Bacteria Hyaline Casts Ur Culture Indicated? Salicylates < 1.0 U Opiates 300ng/mL cut Ur Oxycodone Screen Urine Methadone Screen Acetaminophen < 10 L Ur Barbiturates Screen U Tricyclic Antidepress Ur Phencyclidine Scrn Ur Amphetamines Screen U Methamphetamines Scrn Ur MDMA Scrn (Ecstasy) U Benzodiazepines Scrn Urine Cocaine Screen U Marijuana (THC) Screen Ethyl Alcohol < 10 SARS-CoV-2 (PCR) 04/23/21 04/23/21 04/23/21 21:25 21:25 21:25 WBC RBC Hgb Hct MCV MCH MCHC RDW Plt Count Neut % (Auto) Lymph % (Auto) Fisher % (Auto) Eos % (Auto) Baso % (Auto) Neut # (Auto) Lymph # (Auto) Fisher # (Auto) Eos # (Auto) Baso # (Auto) D-Dimer 670 H VBG pH VBG pCO2 VBG pO2 VBG HCO3 VBG Total CO2 VBG O2 Saturation VBG Base Excess Sodium Potassium Chloride Carbon Dioxide BUN Creatinine Estimated GFR BUN/Creatinine Ratio Glucose Lactate 2.2 H Calcium Total Bilirubin AST ALT Alkaline Phosphatase Total Creatine Kinase CK-MB (CK-2) CK-MB (CK-2) Rel Index Troponin I Total Protein Albumin Globulin Albumin/Globulin Ratio TSH 3.81 Prolactin Urine Color Urine Appearance Urine pH Ur Specific [place] Urine Protein Urine Glucose (UA) Urine Ketones Urine Occult Blood Urine Nitrate Urine Bilirubin Urine Urobilinogen Ur Leukocyte Esterase Urine RBC Urine WBC Urine Bacteria Hyaline Casts Ur Culture Indicated? Salicylates U Opiates 300ng/mL cut Ur Oxycodone Screen Urine Methadone Screen Acetaminophen Ur Barbiturates Screen U Tricyclic Antidepress Ur Phencyclidine Scrn Ur Amphetamines Screen U Methamphetamines Scrn Ur MDMA Scrn (Ecstasy) U Benzodiazepines Scrn Urine Cocaine Screen U Marijuana (THC) Screen Ethyl Alcohol SARS-CoV-2 (PCR) 04/23/21 04/23/21 04/23/21 21:30 22:10 22:10 WBC RBC Hgb Hct MCV MCH MCHC RDW Plt Count Neut % (Auto) Lymph % (Auto) Fisher % (Auto) Eos % (Auto) Baso % (Auto) Neut # (Auto) Lymph # (Auto) Fisher # (Auto) Eos # (Auto) Baso # (Auto) D-Dimer VBG pH VBG pCO2 VBG pO2 VBG HCO3 VBG Total CO2 VBG O2 Saturation VBG Base Excess Sodium Potassium Chloride Carbon Dioxide BUN Creatinine Estimated GFR BUN/Creatinine Ratio Glucose Lactate Calcium Total Bilirubin AST ALT Alkaline Phosphatase Total Creatine Kinase CK-MB (CK-2) CK-MB (CK-2) Rel Index Troponin I Total Protein Albumin Globulin Albumin/Globulin Ratio TSH Prolactin Urine Color Yellow Urine Appearance Clear Urine pH 5.5 Ur Specific [place] 1.015 Urine Protein Negative Urine Glucose (UA) 3+ H Urine Ketones 1+ H Urine Occult Blood Negative Urine Nitrate Negative Urine Bilirubin Negative Urine Urobilinogen 0.2 Ur Leukocyte Esterase Negative Urine RBC None seen Urine WBC 0-1/hpf Urine Bacteria None seen Hyaline Casts 0-1/lpf Ur Culture Indicated? Cult not indicated Salicylates U Opiates 300ng/mL cut Negative Ur Oxycodone Screen Negative Urine Methadone Screen Negative Acetaminophen Ur Barbiturates Screen Negative U Tricyclic Antidepress Negative Ur Phencyclidine Scrn Negative Ur Amphetamines Screen Positive H U Methamphetamines Scrn Positive H Ur MDMA Scrn (Ecstasy) Negative U Benzodiazepines Scrn Negative Urine Cocaine Screen Negative U Marijuana (THC) Screen Negative Ethyl Alcohol SARS-CoV-2 (PCR) Negative 04/23/21 23:25 WBC RBC Hgb Hct MCV MCH MCHC RDW Plt Count Neut % (Auto) Lymph % (Auto) Fisher % (Auto) Eos % (Auto) Baso % (Auto) Neut # (Auto) Lymph # (Auto) Fisher # (Auto) Eos # (Auto) Baso # (Auto) D-Dimer VBG pH VBG pCO2 VBG pO2 VBG HCO3 VBG Total CO2 VBG O2 Saturation VBG Base Excess Sodium Potassium Chloride Carbon Dioxide BUN Creatinine Estimated GFR BUN/Creatinine Ratio Glucose Lactate 1.5 Calcium Total Bilirubin AST ALT Alkaline Phosphatase Total Creatine Kinase CK-MB (CK-2) CK-MB (CK-2) Rel Index Troponin I Total Protein Albumin Globulin Albumin/Globulin Ratio TSH Prolactin Urine Color Urine Appearance Urine pH Ur Specific [place] Urine Protein Urine Glucose (UA) Urine Ketones Urine Occult Blood Urine Nitrate Urine Bilirubin Urine Urobilinogen Ur Leukocyte Esterase Urine RBC Urine WBC Urine Bacteria Hyaline Casts Ur Culture Indicated? Salicylates U Opiates 300ng/mL cut Ur Oxycodone Screen Urine Methadone Screen Acetaminophen Ur Barbiturates Screen U Tricyclic Antidepress Ur Phencyclidine Scrn Ur Amphetamines Screen U Methamphetamines Scrn Ur MDMA Scrn (Ecstasy) U Benzodiazepines Scrn Urine Cocaine Screen U Marijuana (THC) Screen Ethyl Alcohol SARS-CoV-2 (PCR) Assessment & Plan Assessment & Plan narrative: Patient is a 65-year-old male Titi Pattonbree smoker with history of type 1 diabetes on insulin, known hx of drug abuse, and recent reported history of stroke with carotid arterial stenosis with residual left-sided weakness found by EMS unresponsive in his car, covered in vomit in a local restaurant parking lot, who did respond to Narcan administration. Patient admitted for loss of consciousness followed by encephalopathy, respiratory acidosis with metabolic alkalosis, hyperglycemia, amphetamine abuse, and elevated blood pressure. 1. Loss of consciousness followed by encephalopathy, in the setting of hyperglycemia, methamphetamine abuse, resulting in respiratory acidosis with metabolic alkalosis and elevated blood pressure, concurrently with a diagnosis of insulin-dependent type 1 diabetes, and a recent history of stroke with carotid arterial stenosis, acute, present on admission, Rule out Stroke-STABLE -159/89, WBC 13.2, neutrophils 9900, D-dimer of 670-chest CTA was negative for PE. sofa score:0, NIH:6, gap:10 WNL, GCS:15, procalcitonin is 29.6. VBG: PH 7.29, pCO2 62.8, PO2 47, HC03 30, total CO2 32. Urine was positive for ketones, glucose, Drug screen positive amphetamines, methamphetamines. EKG: Normal sinus rhythm, with a ventricular rate of 90, first-degree AV block. -based on the patient's reported history of recent stroke, comorbidities and witnessed loss of consciousness, I have a high suspicion of possible stroke. -patient admitted under stroke protocol, continue patient's atorvastatin 80mg, ordered MR for the morning, add plavix tomorrow if neg for hemorrhagic stroke. -differential alcoholic ketoacidosis, starvation ketosis, toxic metabolic encephalopathy, anion gap acidosis, metformin induced lactic acidosis -goal to correct estimated deficits within 24 hours BS <200, Ph>7.3, HC03>18 -monitor for heart failure, cerebral edema, stroke TIA, or arrhythmias (prolonged QT-warning), developing anion gap,DKA, sepsis, septic shock, stroke, potassium, phosphorus, bicarb and assess for acute pancreatitis, cardiac arrhythmias, respiratory muscle weakness and hyperosmolalitye, hypophosphatemia, cardiac dysfunction, hemolytic anemia, and or respiratory depression. -patient to be monitored on tele medicine, vital signs Q4Hr, blood sugar checks Q 1 hour once patient demonstrates blood glucose levels dropping below 250, then Q4Hrs, intake and output monitored Q shift, weight measure daily, Diet: NPO w/ice chips, once patient has no vomiting x4 hours -Swallow [id number] may progress to carbohydrate diet -IV Fluids: LR 150 cc/hour -once blood sugar is below 250 change IV fluids to D51/2NS @150 cc/Hr. -Lantus 10 units now, then Lantus 20 units q.h.s., continuing patient's Humalog under medium dose sliding scale -patient admitted on diabetic protocol, monitor hyperglycemia, patient placed on medium dose sliding scale. -patient also placed on fall precautions, aspiration precautions -labs ordered ketones, lactate, phosphorus, TSH, A1c, salicylate, procalcitonin, Mag, repeat VBG in am. -MR ordered in am -Urgent: records request from [facility] -Social Work consult regarding homelessness and substance abuse out patient resources. -PT/OT consult for left sided weakness 2. Hyperlipidemia, resulting in carotid arterial stenosis and carotid endarterectomy, chronic, present on admission -continue patient's atorvastatin 80 mg Code status: Full code Surrogate decision maker: Daughter Sandra Gibson in [facility] COVID PCR: Negative COVID vaccination: Endy [employer] Endy December 2020 DVT/VTE prophylaxis: Lovenox 40 and SCDs Estimated length of stay: Expected greater than 2 midnights for resolution of encephalopathy, respiratory acidosis and metabolic alkalosis as well as reduction of blood sugar. I have utilized all available immediate resources to obtain, update, or review the patient's current medications. I confirmed that the patient's advanced care plan is present, Code status is documented and/or surrogate decision maker is listed in the patient's medical record. Scores GCS [place] coma scale eye opening: Spontaneous [place] coma scale verbal response: Orientated Tamara coma scale motor response: Obey commands Tamara coma scale total score: 15 NIHSS Level of Conciousness: Alert, keenly responsive Ask month/age: Answers both questions correctly. Open/close eyes, close hand: Performs one task correctly Best gaze horizontal: Normal Visual vaz: No visual loss Facial palsy: Minor paralysis, flattened nasolabial fold, asymmetry on smiling Left arm drift: Some effort against gravity, cannot maintain, drifts down to bed Right arm drift: No drift for full 10 sec Left leg drift: Drifts down, not to bed Right leg drift: No drift for full 5 sec Limb ataxia: Present in one limb Sensory on face/arms/legs: Normal, no sensory loss Best language: No aphasia, normal Dysarthria: Normal Extinction or inattention: No abnormality Total NIH Stroke scale score: 6 SOFA PaO2/FIO2: >=400 mmHg Platelets: >= 150 Bilirubin: < 1.2 mg/dL Hypotension: MAP >= 70 mmHg Tamara Coma Scale: 15 Renal: < 1.2 mg/dL SOFA Score: 0 Wells' Criteria for PE Clinical signs and symptoms of DVT: No PE is #1 Dx or equally likely: No Heart rate > 100: No Immobilization at least 3 days or surg in previous 4 weeks: Yes History of PE or DVT: No Hemoptysis: No Malignancy w/Treatment within 6 months or palliative: No Wells' PE Score total: 1.5
[2021-04-24 00:59] LABS: Ketones (Beta-Hydroxybutyrate) 1.48 mmol/L (<0.27)
[2021-04-24 01:07] LABS: Hemoglobin A1C% w Est Avg Glu 8.1 % (4.0-6.0)
[2021-04-24 01:17] LABS: Magnesium 1.7 mg/dL (1.6-2.3)
[2021-04-24] MEDS: METOCLOPRAMIDE 10 MG/2 ML INJ IV (01:20)
[2021-04-24 01:43] LABS: Phosphorous 3.9 mg/dL (2.3-3.7)
[2021-04-24] MEDS: LACTATED RINGERS 1,000 ML 150 ML IV (01:58)
[2021-04-24] MEDS: INSULIN GLARGINE 100 UNIT/ML 3ML PEN 10 UNIT SUBCUT (02:02)
--- NOTE | 2021-04-24 03:05 | PC.NURSE ---
0200- Patient admitted from Emergency to room 227. Patient is sleepy but arouses easily. Oriented to place and self. Patient has nausea and vomiting with movement. Reglan IV infusing. Lungs are clear, saturations 98% on room air. BG 258 via finger stick. Patient noted to have a left facial droop and he keeps his left hand closed fist. Patient has spastic movement only. Left leg he can move but is weaker than the right. Patient states he had a stroke and was hospitalized at [facility]. Records requested. Patient is diabetic. NIH score of 6. [employer] C[employer]ODIAN Adarsh aware. Patient oriented to the room call light in reach. Will monitor.
[2021-04-24 04:55] LABS: Add Manual Diff / Slide Review NO; Basophils Absolute Auto 200 /uL (0-100); Basophils Percent Auto 1.9 % (0-2); Eosinophils Absolute Auto 0 /uL (0-450); Hematocrit 44.2 % (41-53); Hemoglobin 14.5 g/dL (13.5-17.5); Lymphocytes Absolute Auto 600 /uL (1100-4500); Lymphocytes Percent Auto 5.5 % (25-40); Mean Corpuscular HGB Conc 32.8 % (30-36); Mean Corpuscular Hemoglobin 29.3 PG (26-34); Mean Corpuscular Volume 89.4 fL (80-100); Monocytes Absolute Auto 500 /uL (0-900); Monocytes Percent Auto 4.4 % (3-14); Neutrophils Absolute Auto 10400 /uL (1500-7000); Neutrophils Percent Auto 88.2 % (50-75); Platelet Count 232 X10^3/uL (150-400); Red Blood Cell Count 4.95 X10^6/uL (4.5-5.9); Red Cell Distribution Width 12.9 % (11.6-14.8); White Blood Cell Count 11.8 X10^3/uL (4.5-11.0)
[2021-04-24 04:57] LABS: Lactate (Lactic Acid) 1.3 mmol/L (0.7-2.1)
[2021-04-24 04:59] LABS: Alanine Aminotransferase 26 IU/L (<50); Albumin 3.6 g/dL (3.5-5.0); Albumin Globulin Ratio 1.1 (1.0-2.8); Alkaline Phosphatase 109 U/L (38-126); Aspartate Aminotransferase 29 IU/L (17-59); BUN Creatinine Ratio 17.1 (6-22); Bilirubin Total 0.8 mg/dL (0.2-1.3); Blood Urea Nitrogen 13 mg/dL (9-20); Calcium 8.6 mg/dL (8.4-10.2); Carbon Dioxide 29 mmol/L (22-32); Chloride 102 mmol/L (98-107); Estimated Glomerular Filt Rate > 60.0 mL/min (>60); Globulin 3.2 g/dL (1.7-4.1); Glucose 261 mg/dL (80-110); HEMOLYSIS 34 (0-50); Potassium 4.4 mmol/L (3.4-5.1); Sodium 139 mmol/L (137-145); Total Protein 6.8 g/dL (6.3-8.2)
[2021-04-24 05:06] LABS: NT-proBNP (BNP-Adult 18+) 177 pg/mL (<125)
[2021-04-24 05:09] LABS: Troponin I 0.038 ng/mL (0.01-0.034)
[2021-04-24 05:32] LABS: HCO3 VBG 33 mmol/L (23-28); Oxygen Saturation VBG 31 % (70-75); PCO2 VBG 64.7 mmHg (45-50); PO2 VBG 22 mmHg (35-45); Total CO2 VBG 35 mmol/L (24-29)
[2021-04-24 05:33] LABS: pH VBG 7.32 (7.33-7.43)
--- NOTE | 2021-04-24 07:40 | DI.CT.S_ITS ---
PROCEDURE: CT HEAD/BRAIN WO CON INDICATIONS: altered mental status TECHNIQUE: Noncontrast 4.5 mm thick angled axial sections acquired from the foramen magnum to the vertex, with coronal and sagittal reformats. For radiation dose reduction, the following was used: automated exposure control, adjustment of mA and/or kV according to patient size. COMPARISON: [facility], CT, CT ANGIO HEAD AND NECK, 10/08/2020, 12:04. [facility], CT, CT ANGIO HEAD AND NECK, 12/15/2018, 9:52. [facility], CT, CT HEAD WITHOUT CONTRAST, 12/16/2018, 9:54. [facility], CT, CT BRAIN WO CON, 06/04/2015, 14:14. [facility], CT, CT ANGIO HEAD AND NECK, 01/26/2021, 15:26. FINDINGS: Image quality: Excellent. CSF spaces: Basal cisterns are patent. No extra-axial fluid collections. The ventricles are symmetric in size and shape. Brain: No intracranial bleeds or masses. Small, subtle hypodensity noted in the left thalamus/mac radiata concerning for early subacute infarct. Chronic right frontal, parietal and temporal lobe infarcts are stable compared to January 26, 2021. . There is cerebral volume loss for age, with resultant ventricular and sulcal prominence. There are periventricular and deep white matter chronic small vessel ischemic changes. There is intracranial internal carotid artery and vertebral artery atherosclerosis. Skull and face: Calvarium and visualized facial bones appear intact, without suspicious lesions. Sinuses: Visualized sinuses and mastoids are clear. IMPRESSION: 1. Possible early subacute left thalamic/mac radiata lacunar infarct. Recommend MRI of the brain for additional evaluation. 2. Large chronic right MCA distribution infarct stable compared to prior exams. 3. No intracranial hemorrhage. Dictated by: Marta Taylor MD, PhD on 04/24/2021 at 7:48 Approved by: Marta Taylor MD, PhD on 04/24/2021 at 7:52
[2021-04-24 07:52] LABS: Hemoglobin A1C% w Est Avg Glu 8.2 % (4.0-6.0)
[2021-04-24] MEDS: levoFLOXacin 750 MG/150 ML PIGGYBACK 100 MG IV (07:53)
[2021-04-24] MEDS: SODIUM CHLORIDE 0.9% FLUSH 10 ML IV (07:54)
[2021-04-24 08:09] LABS: Procalcitonin 0.11 ng/mL (<0.5)
--- NOTE | 2021-04-24 09:07 | DI.CT.S_ITS ---
PROCEDURE: CT ANGIO HEAD AND NECK INDICATIONS: stroke TECHNIQUE: After the administration of intravenous contrast, 1 mm thick sections acquired from the aortic arch through the [place] of [place]. Post-contrast 4.5 mm thick sections then re-acquired from the foramen magnum to the vertex. 3-dimensional fmogloc-bkeeddtwg-enpiyazzyn (MIP) and/or volume rendering reformats were acquired of the central intracranial vasculature and neck separately. COMPARISON: [facility], CT, CT ANGIO HEAD AND NECK, 01/26/2021, 15:26. [facility], MR, MR BRAIN WITHOUT CONTRAST, 01/27/2021, 16:07. [facility], CT, CT ANGIO HEAD AND NECK, 10/08/2020, 12:04. [facility], CT, CT HEAD/BRAIN WO CON, 04/24/2021, 7:32. FINDINGS: Image quality: Excellent. BRAIN: CSF spaces: Ventricles are normal in size and shape. Basal cisterns are patent. No extra-axial fluid collections. Brain: No midline shift. No intracranial bleeds or masses. Seals-white matter interface appears intact. Large right MCA distribution chronic infarct is stable compared to prior exams. Skull and face: Calvarium and facial bones appear intact, without suspicious lesions. Orbits appear normal. Sinuses: Sinuses and mastoids are clear. HEAD CT ANGIOGRAPHY: Anterior circulation: Intracranial internal carotid arteries are normal in flow. Atherosclerotic calcifications noted in the cavernous and clinoid segments of the internal carotid arteries bilaterally which causes mild stenosis of the vessels. The flow within the paired anterior cerebral arteries is normal and symmetric. The flow within the middle cerebral arteries is normal and symmetric. The anterior communicating artery is seen. No aneurysms are seen. Posterior circulation: Atherosclerotic plaque noted in the V4 segments of the vertebral arteries bilaterally which causes high-grade stenosis of the right vertebral artery and minimal narrowing of the left vertebral artery.. Flow within the posterior cerebral arteries is normal and symmetric. No aneurysms are seen. Dural sinuses demonstrate normal postcontrast enhancement. NECK CT ANGIOGRAPHY: Carotid system: The great vessels demonstrate a conventional anatomy as they arise from the aortic arch. The origins of the common carotid arteries appear patent. The common carotid arteries demonstrate normal caliber and courses. Postsurgical changes compatible with right carotid endarterectomy noted in the interval since prior exam obtained January 26, 2021. Origin of the right internal carotid artery is patent. Calcified and soft atherosclerotic plaque noted in the origin of the left internal carotid artery which causes less than 50% stenosis of the vessel. Posterior circulation: Mild atherosclerotic plaque noted in the origins of the vertebral arteries bilaterally which causes mild narrowing of the vessels. Atherosclerotic calcification noted in the V4 segments of the vertebral arteries bilaterally which causes high-grade stenosis of the right vertebral artery and minimal narrowing of the left vertebral artery. Normal flow noted in the basilar artery. Basilar artery appears fully patent. Soft tissues: Visualized neck soft tissues demonstrate no suspicious abnormalities. Bones: No suspicious bony lesions. Spine degenerative disc disease and facet arthropathy. Visualized cervical spine appears normally aligned. IMPRESSION: 1. No acute intracranial disease process. 2. No intracranial hemorrhage. 3. Large chronic right MCA distribution infarct is unchanged compared to prior exams. 4. Status post right carotid endarterectomy. 5. Less than 50% stenosis of the origin of the left internal carotid artery. 7. High-grade stenosis of the proximal V4 segment of the right vertebral artery. Any quantitative measurements of stenosis were performed using NASCET criteria. Dictated by: Marta Taylor MD, PhD on 04/24/2021 at 9:53 Approved by: Marta Taylor MD, PhD on 04/24/2021 at 10:06
[2021-04-24] MEDS: ASPIRIN 325 MG TABLET PO (09:35)
[2021-04-24] MEDS: ENOXAPARIN 40 MG/0.4 ML SYRINGE SUBCUT (09:35)
[2021-04-24] MEDS: ATORVASTATIN 20 MG TABLET 80 MG PO (09:35)
[2021-04-24] MEDS: INSULIN LISPRO 100 UNIT/ML 3ML VIAL SUBCUT ×2 (09:54→12:48)
--- NOTE | 2021-04-24 11:00 | PT.IIE ---
Medical History (Last Updated 04/24/21 @ 04:13 by Hiral Altamirano, [facility]) Amphetamine abuse History of stroke with current residual effects Insulin dependent type 1 diabetes mellitus Methamphetamine abuse Tobacco abuse Weakness of left side of body Weakness of muscle of left side of face due to and not concurrent with cerebrovascular accident (CVA) Physical Therapy Inpatient Evaluation/Re-Eval M1 PT/OT-IP Prior Functional Status Start: 04/24/21 08:41 Freq: NEEDED Status: Active Protocol: Document 04/24/21 11:00 AW (Rec: 04/24/21 11:49 AW [id number]) Medical Review Prior Functional Status Medical History Reviewed Yes Communication Pt is able to make needs known . Mobility and Gait Pt has history of CVA with resultant left-sided weakness. His LUE exhibits strong flexor tone and is contracted. His LLE is weak. Pt uses a tripod cane at baseline and reports he nearly always wears shoes for gait. He reports regular falls - a few per month. Social History Household Members none Living Arrangements Homeless Additional Social History Comment Pt is homeless and states he has been living in a [place] for a little over a month. M2 PT-IP Current Condition Start: 04/24/21 08:41 Freq: NEEDED Status: Active Protocol: Document 04/24/21 11:00 AW (Rec: 04/24/21 11:49 AW [id number]) Physical Therapy Current Condition Current Condition Evaluation Date 04/24/21 Treatment Diagnosis subacute L lacunar CVA; chronic R MCA infarct; left hemiparesis Onset Date 04/23/21 Precautions Other Precautions falls M3 PT-IP Subjective Start: 04/24/21 08:41 Freq: NEEDED Status: Active Protocol: Document 04/24/21 11:00 AW (Rec: 04/24/21 11:49 AW [id number]) Subjective Physical Therapy Visit Type Type Initial Evaluation Visit Start Time 10:28 Visit Stop Time 11:00 Total Visit Minutes 32 Physical Therapy Visit Comments Patient Comments Pt is willing to participate with PT Therapy Pain Assessment Pain When Pain Assessed During Mobility Pain Present Pain Present Denied Pain M4 PT-IP Mobility and Gait Start: 04/24/21 08:41 Freq: NEEDED Status: Active Protocol: Document 04/24/21 11:00 AW (Rec: 04/24/21 11:49 AW [id number]) PT-Bed Mobility Assessment Supine to Sit Supine to Sit Standby Assistance,Bedrails Sit to Supine Sit to Supine Standby Assistance,Head of Bed Elevated Scooting Scooting to Edge of Bed Standby Assistance PT-Transfer Assessment Sit to and From Stand Sit to and from Stand Standby Assistance,Contact Guard Assistance Equipment Transfer Assistive Device Gait Belt,Small Based Quad Cane Orthotic/Prosthetic Devices or Brace: No Transfers Transfer Destination Bed,Chair Transfer Technique Stand Step Pivot Transfer Ability Level of Assist Standby Assistance Comments Mobility Comments Pt was lying in bed as PT arrived. He sat up EOB SBA and quickly stood before equipment was in place. PT handed him quad cane and pt ambulated around the room with SBQC CGA. He sat on the chair and donned his shoes SBA ( right shoe with foot on the ground, left shoe with foot crossed over right knee). He stood and ambulated with improved stability using SBQC SBA. Pt returned to the bed, transferring sit to supine SBA with HOB raised to 30 degrees . He was left with call quinn and tray table in reach, bed alarm on for safety. Gait Assessment Gait Gait Assistance Required: Standby Assistance,Contact Guard Assist Distance (Feet) 40 Assistive Devices Assistive Device Small Based Quad Cane Orthotic/Prosthetic Devices or Brace: No Gait Deviations General Gait Pattern Ataxic,Decreased Stride Length ,Decreased Feet Clearance, Festinating,Flexed Trunk, Lateral Trunk Lean Factors Limiting Gait Function Factors Limiting Gait Function Abnormal Tonal Influences, Decreased Sensation,Decreased Strength,Incoordination, Limited Range of Motion,Pain, Poor Balance,Poor Safety Awareness Comments Gait Comments Pt ambulated with LLE in front with limited weightbearing while RLE advanced with small shuffling steps. Pt was able to ambulate with SBQC and without. Best gait was with SBQC and pt's own shoes donned . Stair Climbing Assessment Comments Stair Climbing Comments Not assessed. PT-Balance Assessment Sitting Balance and Reactions Static Sitting Balance Ability Good Dynamic Sitting Balance Ability Fair Standing Balance and Reactions Static Standing Balance Ability Fair Dynamic Standing Balance Ability Poor Device Used SBQC M5 PT-IP Objective Assessments Start: 04/24/21 08:41 Freq: NEEDED Status: Active Protocol: Document 04/24/21 11:00 AW (Rec: 04/24/21 11:49 AW [id number]) Orientation Orientation/Cognition Level of Alertness Alert Orientation Name,Month,Place,Situation Language Function Ability No Deficits Noted Safety Awareness Decreased Safety Awareness Comments Throughout this session, pt perseverated on the location and security of his vehicle. Gross Range of Motion Upper Extremity ROM Assessment Left Impaired Impairments flexor tone and rigidity, significant contracture of the hand Lower Extremity ROM Assessment Left Impaired Impairments Active DF not able to reach neutral Strength Upper Extremity Strength Assessment Left Impaired Lower Extremity Strength Assessment Left Impaired Hip 3-/5 Knee extension 4/5; flexion 3+/5 Ankle 3-/5 Comments Strength Comments RLE grossly 4+/5 Coordination Assessment Gross Coordination Gross Coordination Impaired Assessment Foot Tapping Test Moderate Impairment Heel on Jacob Test Activity Impossible Sensation Assessment Sensation Gross Sensation Left UE Impaired,Left LE Impaired Light Touch Absent Proprioception (Position) Impaired Sensation Description Numbness Muscle Tone Muscle Tone WNL No Muscle Tone Location Left Upper Extremity Type of Tone Hypertonicity,Rigidity,Flexor Severity of Tone Severe Other Assessments Other Other Assessments Cranial nerves grossly intact. Occulomotor and vestibular screens WNL. M6 PT-IP Treatment Start: 04/24/21 08:41 Freq: NEEDED Status: Active Protocol: Document 04/24/21 11:00 AW (Rec: 04/24/21 11:49 AW [id number]) Physical Therapy Treatment Education Education Provided Safety M7 PT-IP Assessment and Plan Start: 04/24/21 08:41 Freq: NEEDED Status: Active Protocol: Document 04/24/21 11:00 AW (Rec: 04/24/21 11:49 AW [id number]) PT Summary Assessment and Plan Potential Rehabilitation Potential Fair Status of Condition at Evaluation Stable Summary Impairments ROM,Strength,Balance, Coordination,Sensation,Tone, Transfers,Gait Assessment Summary Titi is a 65 yo unsheltered man seen for PT evaluation after being admitted with AMS and hyperglycemia. CT brain showed possible left early subacute thalamic/mac radiata lacunar infarct and chronic right MCA infarct. Pt reports he lives in a [place] and is typically modified independent with use of a tripod cane. He presents with LUE flexor tone, rigidity , and contracted hand. Sensation is disturbed in both LUE and LLE. On evaluation, pt required SBA to CGA with small-base quad cane for ambulation in the room. Gait quality was improved with pt's shoes donned. Pt states his current deficits are consistent with his baseline. Pt would benefit from continued acute PT in the context of possibly evolving new infarct. Pt will likely be safe to discharge once medically stable. Goals Bed Mobility Goal Independent Transfer Goal Independent,Cane Gait Goal Independent,Cane Gait Distance 200 Other Goals - up/down platform step with SBQC IND Days to Meet Goals 5 Frequency of Treatment Frequency Of Treatment Once a Day Treatment Plan Physical Therapy Treatment Plan Bed Mobility Training,Transfer Training,Gait Training, Therapeutic Exercise,Balance Retraining,Discharge Planning, Neuromuscular Re-ed, Coordination Retraining Other Recommendations and Next Treatment gait training with SBQC Focus Precautions Other Precautions falls Recommendations To Nursing Amount of Assist Needed 1 Person Assist Discharge Recommendations PT Discharge Recommendations Home
--- NOTE | 2021-04-24 11:11 | SLP.IPNOTE ---
Pt is eating well per nursing. stated that swallowing evaluation not indicated. Will d/c order.
--- NOTE | 2021-04-24 12:00 | OT.IP.EVAL ---
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 abuse Tobacco abuse Weakness of left side of body Weakness of muscle of left side of face due to and not concurrent with cerebrovascular accident (CVA) Surgical History (Last Updated 04/24/21 @ 04:10 by [facility]) History of right-sided carotid endarterectomy Occupational Therapy Inpatient Evaluation/Re-Eval M1 PT/OT-IP Prior Functional Status Start: 04/24/21 08:41 Freq: NEEDED Status: Active Protocol: Document 04/24/21 12:48 [facility] (Rec: 04/24/21 13:08 [facility] [id number]) Medical Review Prior Functional Status Medical History Reviewed Yes Communication Pt is able to make needs known . Mobility and Gait Pt has history of CVA with resultant left-sided weakness. His LUE exhibits strong flexor tone and is contracted. His LLE is weak. Pt uses a tripod cane at baseline and reports he nearly always wears shoes for gait. He reports regular falls - a few per month. Activities of Daily Living and IADL's Pt states uses a urinal and public bathroom to sponge off. Pt states eats out mostly. Social History Household Members none Living Arrangements Homeless Additional Social History Comment Pt is homeless and states he has been living in a [place] for a little over a month. M2 OT-IP Current Condition Start: 04/24/21 12:48 Freq: Status: Active Protocol: Document 04/24/21 12:48 [facility] (Rec: 04/24/21 13:08 [facility] [id number]) Occupational Therapy Current Condition Current Condition Evaluation Date 04/24/21 Treatment Diagnosis Subacute Left Lacunar CVA, Chronic R MCA infarct Diagnosis Onset Date 04/24/21 Post Operative Precautions Other Precautions High fall risk M3 OT- IP Subjective and Pain Start: 04/24/21 12:48 Freq: Status: Active Protocol: Document 04/24/21 12:48 [facility] (Rec: 04/24/21 13:08 [facility] [id number]) OT- Subjective Occupational Therapy Visit Type Type Initial Evaluation Visit Start Time 11:13 Visit Stop Time 12:00 Total Visit Minutes 47 Occupational Therapy Visit Comments Patient Comments Pt agreed to shower and feels that he is at his baseline. Patient/Caregiver Goals To get back to his car. OT Pain Assessment Pain When Pain Assessed At Rest Pain Present Pain Present Denied Pain M4 OT- IP ADL's Start: 04/24/21 12:48 Freq: Status: Active Protocol: Document 04/24/21 12:48 [facility] (Rec: 04/24/21 13:08 [facility] [id number]) OT [id number] Comments OT Self-Feeding Comments Not at meal time. OT ADL-Grooming Comments OT Grooming Comments Pt able to wash his face. OT ADL-Dressing General Eval Lower Body Dressing Ability Standby Assistance Comments OT Dressing Comments Pt able to slip on his shoes. Pt aware to dress the left side of his body first and take it out last. OT ADL-Toileting Comments OT Toileting Comments Pt did not have to use the toilet. OT ADL-Bathing Bathing Type Bathing Type Shower General Evaluation Bathing Ability Maximal Assistance Areas Needing Assistance Wash/Dry Upper Body,Wash/Dry Back,Wash/Dry Lower Extremities Devices Bathing Equipment Shower Chair with Arms Comments OT Bathing Comments Pt usually just sponges off and wipes what he is able to reach. Able to get pt into the shower. If pt were to use a shower would need assist for safety and completeness as not able to use his LUE to assist due to his left arm is flexed at his elbow, wrist and fingers. M5 OT- IP IADL's Start: 04/24/21 12:48 Freq: Status: Active Protocol: Document 04/24/21 12:48 [facility] (Rec: 04/24/21 13:08 [facility] [id number]) OT-Instrumental Activities of Daily Living Home Safety Awareness Home Safety Comments Pt lives out of his car. M6 OT- IP Functional Cognition Start: 04/24/21 12:48 Freq: Status: Active Protocol: Document 04/24/21 12:48 [facility] (Rec: 04/24/21 13:08 [facility] [id number]) Cognitive Factors Limiting Selfcare Function Cognitive Ability Level of Alertness Alert Attention Span Ability Capable of Focused Attention, Capable of Sustained Attention Ability to Follow Commands Able to Follow Multi-Step Commands Safety Awareness Underestimates Need for Assistance Cognitive Comments Cognitive Assessment Comments Pt feels that he is at his baseline for needs. Pt admits to falling down several times a month as he at times not able to get his LLE to move. Decreased initiation of movement especially for his left side. OT- Vision and Hearing OT- Hearing Assessment OT- Hearing Assessment WFL OT- Vision Assessment Visual Acuity WFL M7 OT- IP Mobility and Balance Start: 04/24/21 12:48 Freq: Status: Active Protocol: Document 04/24/21 12:48 [facility] (Rec: 04/24/21 13:08 [facility] [id number]) OT- Bed Mobility Assessment Supine to Sit Supine to Sit Assist Standby Assistance Sit to Supine Sit to Supine Assist Standby Assistance OT-Transfer Assessment Sit to and From Stand Sit to and from Stand Standby Assistance,Contact Guard Assistance Transfers Transfer Ability Standby Assistance,Contact Guard Assistance Technique Transfer Destination Bed,Shower Stall Transfer Technique Stand Step Pivot Devices Transfer Assistive Devices Gait Belt,Small Based Quad Cane Comments Mobility Comments Pt initially having a hard time to move and then after standing fo ra bit able to move his legs. At times having to use momentum to get started. Pt at times form SBA, CGA, anbd at one time needing MODA to catch pt from falling as he lost his balance. OT- Balance Assessment Sitting Balance and Reactions Static Sitting Balance Ability Good Dynamic Sitting Balance Ability Fair Standing Balance and Reactions Static Standing Balance Ability Fair M8 OT- IP Objective Assessments Start: 04/24/21 12:48 Freq: Status: Active Protocol: Document 04/24/21 12:48 [facility] (Rec: 04/24/21 13:08 [facility] [id number]) OT Gross Range of Motion Upper Extremity Range of Motion Assessment Left Impaired OT Strength Upper Extremity Strength Assessment Left Impaired OT- Coordination Assessment Upper Extremity Finger to Nose Test Left UE Impaired OT-Muscle Tone Assessment Muscle Tone WNL No Muscle Tone Location Left Upper Extremity Type of Tone Hypertonicity,Rigidity,Flexor Severity of Tone Severe M9 OT- IP Assessment and Plan Start: 04/24/21 12:48 Freq: Status: Active Protocol: Document 04/24/21 12:48 [facility] (Rec: 04/24/21 13:08 [facility] [id number]) OT Summary Assessment and Plan Potential Rehabilitation Potential Fair Analytic Complexity at Evaluation Moderate Summary OT Impairments Balance,Functional Mobility, Dressing,Bathing,Activity Tolerance Progress Towards Goals Progressing Toward Goals Goals Dressing Goal Independent Toileting Goal Independent Toilet Transfer Goal Independent Days to Meet Goals 2 Frequency of Treatment Frequency Of Treatment Once a Day Treatment Plan OT Treatment Plan ADL Training,Functional Mobility,Patient/Family Education,Discharge Planning Discharge Recommendations OT Discharge Recommendations Home Other Discharge Recommendations Pt would require assist if wanting to try to use a shower versus sponging off. Pt is a high fall risk and would benefit from therapy to help work on his balance and mobility needs. Per pt did not have any therapy after his CVA. Pt is homeless. Transportation Needs at Discharge Private Vehicle
[2021-04-24 12:34] LABS: Troponin I 0.041 ng/mL (0.01-0.034)
--- NOTE | 2021-04-24 14:52 | PC.NURSE ---
AO x3 with left side deficits from previous strokes (per pt's own report). Pt was able to work with PT/OT who determined he is likely at his baseline mobility. Pt is tolerating carb consistent diet without n/v. Indwelling catheter was removed and pt has not yet voided. Bladder scan done showing 20 ML. Encouraged PO fluids. Plan is to dc today. BENEFITS TECHNICIAN aware and plan is to arrange taxi voucher so pt can get back to his vehicle.
--- NOTE | 2021-04-24 16:23 | CM.DPC ---
DCP/Assessment: Reviewed chart. Patient admitted to [facility] with possible CVA. No PCP listed. Patient's primary payor is 1)Medicaid. BUSINESS UNIT LEADER met with patient this afternoon explained CM/YULI role. Patient reports that currently he has no d/c planning needs except would like assistance finding his automobile. Patient believes it is at [employer] parking lot BUSINESS UNIT LEADER spoke with finisher map and chart/Mino and he reports that he would be more than happy to check. Mino confirms with patient that automobile there and cab voucher with [employer] provided. Patient denies any additional needs. Patient with h/o meth use. P: Patient wishes to return to his car at time of d/c. Patient declined resources. AMELIE Martinez Discharge Planning/Care Management CM Discharge Assessment Start: 04/24/21 16:18 Freq: Status: Active Protocol: Document 04/24/21 16:19 KJS (Rec: 04/24/21 16:23 KJS [id number]) Discharge Planning Assessment Assigned Rocket Assembly Operator AMELIE Martinez Contact Information None listed Advance Directives? No History Provided By Patient,Medical Record Prior Living Arrangements Homeless Household Members none Type of transporation used prior to Drives own vehicle admit Comment Patient lives in automobile. Independent with ADL's Yes Is patient alert and oriented? Yes Caregiver for Another No Barriers to Discharge No Transportation Arrangement Patient requiring cab to get to his automobile a few blocks away. Medicaid does not cover transport for short distances . Therefore, emergency fund utilized for cab ride. Estimated cost is $7.00. Referrals Initiated Other Additional Comment Patient any community resources. Supervisor Roving/Mino also touched base with him. Review Status In Process Next Review Type Continued Stay Review
--- NOTE | 2021-04-24 17:24 | PM.DS.1 ---
History of Present Illness History of Present Illness Chief complaint: Unresponsive Narrative: Per Hiral Adarsh: Patient is a 65-year-old male Titi Gibson smoker with history of diabetes on insulin presents by EMS for evaluation of altered mental status. He was found in his car covered in vomit in a local restaurant parking lot. Medics found him unresponsive and initial blood sugar was 400. He was given Narcan and then came around. He denies the use of drugs but through the paramedics state he is known drug user. He states he has not missed any doses of his insulin and is otherwise well and free of complaint. Patient was confusioned in the ED, on arrival to the floor he was orientated x3. He denies any chest pain or shortness of breath. He denies any trauma or other injury. Patient continued to be nauseated and vomit in the ED, despite repeated doses of antiemetics. Patient is a type 1 diabetic, and notes that he was seen at [facility] for a stroke and what sounds like a carotid endarterectomy just a few months ago, and that the patient's left facial droop, contracted left arm/ hand and left leg weakness are secondary to that stroke. Based on the degree of contracture of the left arm I suspect that the stroke was longer than a few months ago. He denies a diagnosis hypertension, COPD, or heart disease, and states that he is not on any anticoagulants. The patient states that he is able to ambulate with a cane normally. Patient denies headache, changes in vision, dizziness, vertigo, new onset weakness, numbness, tingling, abdominal pain, urinary issues, recent illness, exposure to ill persons, injury, or trauma. Patient states that he heavily used meth a few years ago but may have used as recently as 3 days ago, he denies ever drinking alcohol, and denied any other recreational substances. Patient is currently homeless, lives out of his car, and is unemployed. Patient is resting comfortably in bed, he has had only 1 episode of vomiting since arriving on the floor and that was with movement from transitioning from the gurney to the . Vitals, his blood pressure was slightly elevated on admit 159/89, HR 84, RR 9, O2 sat 99% on room air. Although patient was found unresponsive, he is arousable but continues to be confused, currently his airway is protected is having no difficulty with breathing. Patient has a small elevation WBC 13.2 with neutrophils 9900, lactate, troponin both her negative, patient's potassium is normal, serum HC03 is normal. D-dimer of 670-chest CTA was negative for PE. 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 Patient's procalcitonin is 29.6. Patient's VBG: PH 7.29, pCO2 62.8, PO2 47, HC03 30, total CO2 32. Patient's urine was positive for ketones and glucose but negative for nitrates no culture ordered. Drug screen was negative for acetaminophen, positive for amphetamines and methamphetamines, negative for alcohol. Patient's TSH was negative. CT of abdomen and pelvis demonstrated distended gallbladder without wall thickening or fluid, enlarged prostate mild bladder wall thickening. And and in the lungs bibasilar dependent changes right greater than left. Chest x-ray was negative for acute cardiopulmonary processes. Patient admitted for loss of consciousness followed by altered mental status, respiratory acidosis with metabolic alkalosis, hyperglycemia, amphetamine abuse, and elevated blood pressure. Discharge Providers Provider Date of admission: 04/24/21 00:39 Discharge Date: 04/24/21 Consults: 04/24/21 00:44 Consult to Dietitian, Adult Routine Comment: Reason For Exam: DM, substance abuse 04/24/21 01:50 Consult to Discharge Planning Routine Comment: Consult to Occupational Therapy Evaluate & Treat Comment: Physician Instructions: Evaluate and treat Consult to Physical Therapy Evaluate & Treat Comment: Physician Instructions: Evaluate and Treat Consult to Speech Therapy Evaluate & Treat Comment: Physician Instructions: Evaluate and treat 04/24/21 04:45 Consult to DIRECTOR OF REVENUE - Audit Control Clerk Routine Comment: [facility] Consult: Substance Abuse Assess [facility] Need Consult to Occupational Therapy Evaluate & Treat Comment: left sided weakness Physician Instructions: Evaluate and treat Consult to Physical Therapy Evaluate & Treat Comment: left sided weakness Physician Instructions: Evaluate and Treat Discharge provider: Alan Moffett MD Summary Hospital Course Discharge Diagnosis: 1. Probable CVA 2. 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 History intracranial bleed 4. Current methamphetamine abuse 5. Found unresponsive 6. Cardiac demand ischemia 7. Type 1 diabetes, insulin dependent, with hyperglycemia 8. History of R carotid endarterectomy 9. Chronic severe R vertebral artery stenosis Hospital Course: Mr. Gibson was found unresponsive in his car, covered in vomit. He could not remember what happened for much of yesterday. He remembers driving to [employer] to look for a place to park his car, as he is currently homeless and living in his car. He has no recollection of the rest of the day, and believes he was driving around in the early afternoon. He has meth in his urine, he does not believe he used meth yesterday. He can't remember if he took his insulin. He came initially unresponsive, but gradually improved. He had high blood sugars, but no evidence of DKA. He had no evidence of infection. He did have a CT head done that showed possible subacute stroke in the left thalamus/mac radiata. MRI was attempted, but patient has had trauma in the past from enclosed spaces, and he was adamant he would not do it. Importance of MRI was discussed to further evaluate for stroke, and medications were offered to calm anxiety but patient declined. He was aware of risks. CT angio showed history of R carotid endarterectomy with current good flow, minimal stenosis on left carotid, and chronic signifiant stenosis of right v4 segment of vertebral artery. Basilar artery patent and good collateral flow. This was unchanged from prior. He was given aspirin and plavix, continued on high dose atorvastatin. He said he had his insulin and did not need prescription, but does admit to sometimes not taking his insulin, which may be why is a1c was 8.2. He was encouraged to follow up with a PCP. He declined further social work assistance for his drug use. Exam Vital Signs (past 8 hours): - 04/24/21 11:00 04/24/21 12:29 04/24/21 16:00 Temperature 98.2 F 97.7 F Pulse Rate 92 H 88 Respiratory Rate 14 17 Blood Pressure 131/68 133/80 Pulse Oximetry 98 96 97 Oxygen Delivery Method Room Air Oxygen Flow Rate 0 Narrative Exam Narrative: General: thin frail, no acute distress PULM: clear bilaterally, no wheezes, rhonchi, rales CV: regular rate and rhythm with no murmurs ABD: Soft nontender, nondistended, no organomegaly Skin: Warm dry, cracked and intact without rashes, ulcerations or petechiae. Neuro: left facial droop per patient is chronic, left arm contracted per patient is chronic, 4/5 weakness in left leg per patient is chronic Objective Labs Result Diagrams: 04/24/21 04:35 04/24/21 04:35 Labs: Laboratory Results - last 24 hr 04/23/21 04/23/21 04/23/21 20:25 21:23 21:25 WBC 13.2 H RBC 5.25 Hgb 15.3 Hct 47.2 MCV 90.0 MCH 29.1 MCHC 32.4 RDW 13.0 Plt Count 339 Neut % (Auto) 74.7 Lymph % (Auto) 17.8 L [place] % (Auto) 6.3 Eos % (Auto) 0.3 L Baso % (Auto) 0.9 Neut # (Auto) 9900 H Lymph # (Auto) 2400 [place] # (Auto) 800 Eos # (Auto) 0 Baso # (Auto) 100 D-Dimer VBG pH 7.29 L VBG pCO2 62.8 H VBG pO2 47 H VBG HCO3 30 H VBG Total CO2 32 H VBG O2 Saturation 76 H VBG Base Excess 3.0 Sodium 137 Potassium 3.6 Chloride 101 Carbon Dioxide 26 BUN 16 Creatinine 1.07 Estimated GFR > 60.0 BUN/Creatinine Ratio 15.0 Glucose 443 H Hemoglobin A1c Lactate Calcium 9.6 Phosphorus Magnesium Total Bilirubin 1.2 AST 39 ALT 28 Alkaline Phosphatase 157 H Total Creatine Kinase 151 CK-MB (CK-2) 2.57 H CK-MB (CK-2) Rel Index 1.7 Troponin I < 0.012 NT-Pro-B Natriuret Pep Total Protein 7.9 Albumin 4.3 Globulin 3.6 Albumin/Globulin Ratio 1.2 Procalcitonin TSH Prolactin 29.6 H Urine Color Urine Appearance Urine pH Ur Specific [place] Urine Protein Urine Glucose (UA) Urine Ketones Urine Occult Blood Urine Nitrate Urine Bilirubin Urine Urobilinogen Ur Leukocyte Esterase Urine RBC Urine WBC Urine Bacteria Hyaline Casts Ur Culture Indicated? Nasal Screen MRSA (PCR) Salicylates < 1.0 U Opiates 300ng/mL cut Ur Oxycodone Screen Urine Methadone Screen Acetaminophen < 10 L Ur Barbiturates Screen U Tricyclic Antidepress Ur Phencyclidine Scrn Ur Amphetamines Screen U Methamphetamines Scrn Ur MDMA Scrn (Ecstasy) U Benzodiazepines Scrn Urine Cocaine Screen U Marijuana (THC) Screen Ethyl Alcohol < 10 Ketones SARS-CoV-2 (PCR) 04/23/21 04/23/21 04/23/21 21:25 21:25 21:25 WBC RBC Hgb Hct MCV MCH MCHC RDW Plt Count Neut % (Auto) Lymph % (Auto) [place] % (Auto) Eos % (Auto) Baso % (Auto) Neut # (Auto) Lymph # (Auto) [place] # (Auto) Eos # (Auto) Baso # (Auto) D-Dimer 670 H VBG pH VBG pCO2 VBG pO2 VBG HCO3 VBG Total CO2 VBG O2 Saturation VBG Base Excess Sodium Potassium Chloride Carbon Dioxide BUN Creatinine Estimated GFR BUN/Creatinine Ratio Glucose Hemoglobin A1c Lactate 2.2 H Calcium Phosphorus Magnesium Total Bilirubin AST ALT Alkaline Phosphatase Total Creatine Kinase CK-MB (CK-2) CK-MB (CK-2) Rel Index Troponin I NT-Pro-B Natriuret Pep Total Protein Albumin Globulin Albumin/Globulin Ratio Procalcitonin TSH 3.81 Prolactin Urine Color Urine Appearance Urine pH Ur Specific [place] Urine Protein Urine Glucose (UA) Urine Ketones Urine Occult Blood Urine Nitrate Urine Bilirubin Urine Urobilinogen Ur Leukocyte Esterase Urine RBC Urine WBC Urine Bacteria Hyaline Casts Ur Culture Indicated? Nasal Screen MRSA (PCR) Salicylates U Opiates 300ng/mL cut Ur Oxycodone Screen Urine Methadone Screen Acetaminophen Ur Barbiturates Screen U Tricyclic Antidepress Ur Phencyclidine Scrn Ur Amphetamines Screen U Methamphetamines Scrn Ur MDMA Scrn (Ecstasy) U Benzodiazepines Scrn Urine Cocaine Screen U Marijuana (THC) Screen Ethyl Alcohol Ketones SARS-CoV-2 (PCR) 04/23/21 04/23/21 04/23/21 21:25 21:25 21:25 WBC RBC Hgb Hct MCV MCH MCHC RDW Plt Count Neut % (Auto) Lymph % (Auto) [place] % (Auto) Eos % (Auto) Baso % (Auto) Neut # (Auto) Lymph # (Auto) [place] # (Auto) Eos # (Auto) Baso # (Auto) D-Dimer VBG pH VBG pCO2 VBG pO2 VBG HCO3 VBG Total CO2 VBG O2 Saturation VBG Base Excess Sodium Potassium Chloride Carbon Dioxide BUN Creatinine Estimated GFR BUN/Creatinine Ratio Glucose Hemoglobin A1c 8.1 H Lactate Calcium Phosphorus 3.9 H Magnesium Total Bilirubin AST ALT Alkaline Phosphatase Total Creatine Kinase CK-MB (CK-2) CK-MB (CK-2) Rel Index Troponin I NT-Pro-B Natriuret Pep Total Protein Albumin Globulin Albumin/Globulin Ratio Procalcitonin TSH Prolactin Urine Color Urine Appearance Urine pH Ur Specific [place] Urine Protein Urine Glucose (UA) Urine Ketones Urine Occult Blood Urine Nitrate Urine Bilirubin Urine Urobilinogen Ur Leukocyte Esterase Urine RBC Urine WBC Urine Bacteria Hyaline Casts Ur Culture Indicated? Nasal Screen MRSA (PCR) Salicylates U Opiates 300ng/mL cut Ur Oxycodone Screen Urine Methadone Screen Acetaminophen Ur Barbiturates Screen U Tricyclic Antidepress Ur Phencyclidine Scrn Ur Amphetamines Screen U Methamphetamines Scrn Ur MDMA Scrn (Ecstasy) U Benzodiazepines Scrn Urine Cocaine Screen U Marijuana (THC) Screen Ethyl Alcohol Ketones 1.48 H SARS-CoV-2 (PCR) 04/23/21 04/23/21 04/23/21 21:30 22:10 22:10 WBC RBC Hgb Hct MCV MCH MCHC RDW Plt Count Neut % (Auto) Lymph % (Auto) [place] % (Auto) Eos % (Auto) Baso % (Auto) Neut # (Auto) Lymph # (Auto) [place] # (Auto) Eos # (Auto) Baso # (Auto) D-Dimer VBG pH VBG pCO2 VBG pO2 VBG HCO3 VBG Total CO2 VBG O2 Saturation VBG Base Excess Sodium Potassium Chloride Carbon Dioxide BUN Creatinine Estimated GFR BUN/Creatinine Ratio Glucose Hemoglobin A1c Lactate Calcium Phosphorus Magnesium Total Bilirubin AST ALT Alkaline Phosphatase Total Creatine Kinase CK-MB (CK-2) CK-MB (CK-2) Rel Index Troponin I NT-Pro-B Natriuret Pep Total Protein Albumin Globulin Albumin/Globulin Ratio Procalcitonin TSH Prolactin Urine Color Yellow Urine Appearance Clear Urine pH 5.5 Ur Specific [place] 1.015 Urine Protein Negative Urine Glucose (UA) 3+ H Urine Ketones 1+ H Urine Occult Blood Negative Urine Nitrate Negative Urine Bilirubin Negative Urine Urobilinogen 0.2 Ur Leukocyte Esterase Negative Urine RBC None seen Urine WBC 0-1/hpf Urine Bacteria None seen Hyaline Casts 0-1/lpf Ur Culture Indicated? Cult not indicated Nasal Screen MRSA (PCR) Salicylates U Opiates 300ng/mL cut Negative Ur Oxycodone Screen Negative Urine Methadone Screen Negative Acetaminophen Ur Barbiturates Screen Negative U Tricyclic Antidepress Negative Ur Phencyclidine Scrn Negative Ur Amphetamines Screen Positive H U Methamphetamines Scrn Positive H Ur MDMA Scrn (Ecstasy) Negative U Benzodiazepines Scrn Negative Urine Cocaine Screen Negative U Marijuana (THC) Screen Negative Ethyl Alcohol Ketones SARS-CoV-2 (PCR) Negative 04/23/21 04/23/21 04/24/21 23:25 23:25 01:00 WBC RBC Hgb Hct MCV MCH MCHC RDW Plt Count Neut % (Auto) Lymph % (Auto) [place] % (Auto) Eos % (Auto) Baso % (Auto) Neut # (Auto) Lymph # (Auto) [place] # (Auto) Eos # (Auto) Baso # (Auto) D-Dimer VBG pH VBG pCO2 VBG pO2 VBG HCO3 VBG Total CO2 VBG O2 Saturation VBG Base Excess Sodium Potassium Chloride Carbon Dioxide BUN Creatinine Estimated GFR BUN/Creatinine Ratio Glucose Hemoglobin A1c Lactate 1.5 Calcium Phosphorus Magnesium 1.7 Total Bilirubin AST ALT Alkaline Phosphatase Total Creatine Kinase CK-MB (CK-2) CK-MB (CK-2) Rel Index Troponin I NT-Pro-B Natriuret Pep Total Protein Albumin Globulin Albumin/Globulin Ratio Procalcitonin TSH Prolactin Urine Color Urine Appearance Urine pH Ur Specific [place] Urine Protein Urine Glucose (UA) Urine Ketones Urine Occult Blood Urine Nitrate Urine Bilirubin Urine Urobilinogen Ur Leukocyte Esterase Urine RBC Urine WBC Urine Bacteria Hyaline Casts Ur Culture Indicated? Nasal Screen MRSA (PCR) Negative for mrsa Salicylates U Opiates 300ng/mL cut Ur Oxycodone Screen Urine Methadone Screen Acetaminophen Ur Barbiturates Screen U Tricyclic Antidepress Ur Phencyclidine Scrn Ur Amphetamines Screen U Methamphetamines Scrn Ur MDMA Scrn (Ecstasy) U Benzodiazepines Scrn Urine Cocaine Screen U Marijuana (THC) Screen Ethyl Alcohol Ketones SARS-CoV-2 (PCR) 04/24/21 04/24/21 04/24/21 04:35 04:35 04:35 WBC 11.8 H RBC 4.95 Hgb 14.5 Hct 44.2 MCV 89.4 MCH 29.3 MCHC 32.8 RDW 12.9 Plt Count 232 Neut % (Auto) 88.2 H Lymph % (Auto) 5.5 L [place] % (Auto) 4.4 Eos % (Auto) 0.0 L Baso % (Auto) 1.9 Neut # (Auto) 68321 H Lymph # (Auto) 600 L [place] # (Auto) 500 Eos # (Auto) 0 Baso # (Auto) 200 H D-Dimer VBG pH VBG pCO2 VBG pO2 VBG HCO3 VBG Total CO2 VBG O2 Saturation VBG Base Excess Sodium 139 Potassium 4.4 Chloride 102 Carbon Dioxide 29 BUN 13 Creatinine 0.76 Estimated GFR > 60.0 BUN/Creatinine Ratio 17.1 Glucose 261 H D Hemoglobin A1c Lactate 1.3 Calcium 8.6 Phosphorus Magnesium Total Bilirubin 0.8 AST 29 ALT 26 Alkaline Phosphatase 109 Total Creatine Kinase CK-MB (CK-2) CK-MB (CK-2) Rel Index Troponin I NT-Pro-B Natriuret Pep 177 H Total Protein 6.8 Albumin 3.6 Globulin 3.2 Albumin/Globulin Ratio 1.1 Procalcitonin TSH Prolactin Urine Color Urine Appearance Urine pH Ur Specific [place] Urine Protein Urine Glucose (UA) Urine Ketones Urine Occult Blood Urine Nitrate Urine Bilirubin Urine Urobilinogen Ur Leukocyte Esterase Urine RBC Urine WBC Urine Bacteria Hyaline Casts Ur Culture Indicated? Nasal Screen MRSA (PCR) Salicylates U Opiates 300ng/mL cut Ur Oxycodone Screen Urine Methadone Screen Acetaminophen Ur Barbiturates Screen U Tricyclic Antidepress Ur Phencyclidine Scrn Ur Amphetamines Screen U Methamphetamines Scrn Ur MDMA Scrn (Ecstasy) U Benzodiazepines Scrn Urine Cocaine Screen U Marijuana (THC) Screen Ethyl Alcohol Ketones SARS-CoV-2 (PCR) 04/24/21 04/24/21 04/24/21 04:35 04:35 04:35 WBC RBC Hgb Hct MCV MCH MCHC RDW Plt Count Neut % (Auto) Lymph % (Auto) [place] % (Auto) Eos % (Auto) Baso % (Auto) Neut # (Auto) Lymph # (Auto) [place] # (Auto) Eos # (Auto) Baso # (Auto) D-Dimer VBG pH VBG pCO2 VBG pO2 VBG HCO3 VBG Total CO2 VBG O2 Saturation VBG Base Excess Sodium Potassium Chloride Carbon Dioxide BUN Creatinine Estimated GFR BUN/Creatinine Ratio Glucose Hemoglobin A1c 8.2 H Lactate Calcium Phosphorus Magnesium Total Bilirubin AST ALT Alkaline Phosphatase Total Creatine Kinase CK-MB (CK-2) CK-MB (CK-2) Rel Index Troponin I 0.038 H NT-Pro-B Natriuret Pep Total Protein Albumin Globulin Albumin/Globulin Ratio Procalcitonin 0.11 TSH Prolactin Urine Color Urine Appearance Urine pH Ur Specific [place] Urine Protein Urine Glucose (UA) Urine Ketones Urine Occult Blood Urine Nitrate Urine Bilirubin Urine Urobilinogen Ur Leukocyte Esterase Urine RBC Urine WBC Urine Bacteria Hyaline Casts Ur Culture Indicated? Nasal Screen MRSA (PCR) Salicylates U Opiates 300ng/mL cut Ur Oxycodone Screen Urine Methadone Screen Acetaminophen Ur Barbiturates Screen U Tricyclic Antidepress Ur Phencyclidine Scrn Ur Amphetamines Screen U Methamphetamines Scrn Ur MDMA Scrn (Ecstasy) U Benzodiazepines Scrn Urine Cocaine Screen U Marijuana (THC) Screen Ethyl Alcohol Ketones SARS-CoV-2 (PCR) 04/24/21 04/24/21 05:14 12:00 WBC RBC Hgb Hct MCV MCH MCHC RDW Plt Count Neut % (Auto) Lymph % (Auto) [place] % (Auto) Eos % (Auto) Baso % (Auto) Neut # (Auto) Lymph # (Auto) [place] # (Auto) Eos # (Auto) Baso # (Auto) D-Dimer VBG pH 7.32 L VBG pCO2 64.7 H VBG pO2 22 L VBG HCO3 33 H VBG Total CO2 35 H VBG O2 Saturation 31 L VBG Base Excess 7.0 H Sodium Potassium Chloride Carbon Dioxide BUN Creatinine Estimated GFR BUN/Creatinine Ratio Glucose Hemoglobin A1c Lactate Calcium Phosphorus Magnesium Total Bilirubin AST ALT Alkaline Phosphatase Total Creatine Kinase CK-MB (CK-2) CK-MB (CK-2) Rel Index Troponin I 0.041 H NT-Pro-B Natriuret Pep Total Protein Albumin Globulin Albumin/Globulin Ratio Procalcitonin TSH Prolactin Urine Color Urine Appearance Urine pH Ur Specific [place] Urine Protein Urine Glucose (UA) Urine Ketones Urine Occult Blood Urine Nitrate Urine Bilirubin Urine Urobilinogen Ur Leukocyte Esterase Urine RBC Urine WBC Urine Bacteria Hyaline Casts Ur Culture Indicated? Nasal Screen MRSA (PCR) Salicylates U Opiates 300ng/mL cut Ur Oxycodone Screen Urine Methadone Screen Acetaminophen Ur Barbiturates Screen U Tricyclic Antidepress Ur Phencyclidine Scrn Ur Amphetamines Screen U Methamphetamines Scrn Ur MDMA Scrn (Ecstasy) U Benzodiazepines Scrn Urine Cocaine Screen U Marijuana (THC) Screen Ethyl Alcohol Ketones SARS-CoV-2 (PCR) [facility] Medical History (Updated 04/24/21 @ 04:13 by JUAN CARLOS Thomas-JORDYN) Amphetamine abuse History of stroke with current residual effects Insulin dependent type 1 diabetes mellitus Methamphetamine abuse Tobacco abuse Weakness of left side of body Weakness of muscle of left side of face due to and not concurrent with cerebrovascular accident (CVA) Surgical History (Updated 04/24/21 @ 04:10 [facility] History of right-sided carotid endarterectomy Family History (Updated 04/24/21 @ 04:15 by QUINTON Thomas) Mother Diabetes mellitus Father Congestive heart failure Social History household members: none Smoking Status: Smoker, status unknown alcohol intake: never Discharge Plan Discharge Plan Patient Disposition: Home Provider Discharge Comment: Mr. Gibson came in to the hospital after he was found unresponsive. He had a possible stroke on his CT scan. However, he says he can not tolerate an MRI while awake due to past experiences so this was not done. He worked with therapy and did well and was wanting to leave the hospital. Discharge orders & Medications Prescriptions: New aspirin 81 mg Tablet,Delayed Release (Dr/Ec) 81 mg PO DAILY Qty: 30 RF: 0 clopidogrel 75 mg Tablet 75 mg PO DAILY Qty: 30 RF: 0 Lantus Solostar U-100 Insulin 100 unit/mL (3 mL) Insulin Pen 20 unit SUBCUT BID Qty: 10 RF: 0 insulin lispro [Humalog U-100 Insulin] 100 unit/mL Solution 5 - 12 unit SUBCUT TIDWM Qty: 10 RF: 0 Continued atorvastatin 80 mg PO DAILY RF: 0 Diet/Activity/Treatments Diet: Carb-consistent/Diabetic, Low-fat and Low-sodium Visit Report/Discharge Packet Instructions: DI for Stroke-Ischemic, DI for Diabetes Type 1 -- Adult, How to Prevent Falls Quality MIPS - DC The patient has current or prior documentation of left ventricular ejection fraction (LVEF) less than 40%, or moderate or severely depressed left ventricular systolic function.: No
--- NOTE | 2021-04-24 18:10 | PC.NURSE ---
Pt given discharge instructions w/ understanding Also given a voucher for taxi to his car. D/C'd in stable condition.
[2021-04-25 17:13] LABS: Acinetobacter baumannii Not Detected (Not Detect); Candida albicans Not Detected (Not Detect); Candida glabrata Not Detected (Not Detect); Candida krusei Not Detected (Not Detect); Candida parapsilosis Not Detected (Not Detect); Candida tropicalis Not Detected (Not Detect); E. coli Not Detected (Not Detect); Enterobacter cloacae complex Not Detected (Not Detect); Enterobacteriaceae species Not Detected (Not Detect); Enterococcus species Not Detected (Not Detect); Haemophilus influenzae Not Detected (Not Detect); Listeria monocytogenes Not Detected (Not Detect); Neisseria meningitidis Not Detected (Not Detect); Proteus species Not Detected (Not Detect); Pseudomonas aeruginosa Not Detected (Not Detect); Serratia marcescens Not Detected (Not Detect); Staphylococcus species Not Detected (Not Detect); Streptococcus agalactiae (Gr B Not Detected (Not Detect); Streptococcus pneumonia Not Detected (Not Detect); Streptococcus pyogenes (Gr A) Not Detected (Not Detect); Streptococcus species Not Detected (Not Detect)
== END 2021-04-24 17:30 | disposition home or self-care (01) | DRG 65 ==
LOC: ED 22:44 → ICU 04-24 02:11 → AC 12-11 10:47
PROVIDERS: Internal Medicine; Admitting Provider Nurse Practitioner Family; Emergency Provider Emergency Medicine; Referring Provider Emergency Medicine; Visit Provider Nurse Practitioner Family
DX: I63.211 Cerebral infarction due to unspecified occlusion or stenosis of right vertebral artery (principal); I69.354 Hemiplegia and hemiparesis following cerebral infarction affecting left non-dominant side; G93.49 Other encephalopathy; E87.4 Mixed disorder of acid-base balance; I24.8 Other forms of acute ischemic heart disease; R29.706 NIHSS score 6; E10.65 Type 1 diabetes mellitus with hyperglycemia; F15.10 Other stimulant abuse, uncomplicated; E78.5 Hyperlipidemia, unspecified; F17.210 Nicotine dependence, cigarettes, uncomplicated; Z20.822 Contact with and (suspected) exposure to COVID-19; Z79.4 Long term (current) use of insulin; Z59.0 Homelessness
CPT/HCPCS: 36415; 70450; 70496; 70498; 71045; 71275; 74177; 80053; 80305; 80320; 80329; 81001; 82009; 82550; 82553; 82805; 82962; 83036; 83605; 83735; 83880; 84100; 84145; 84146; 84443; 84484; 85025; 85379; 87040; 87150; 87205; 87635; 87797; 93005; 96361; 96372; 96374; 96375; 96376; 97116; 97162; 97166; 99284; C9803; G0378; G0480; J1650; J1815; J1956; J2405; J2765; Q9967